=== PATIENT | male | born 1975 | race Caucasian/White ===

== ENCOUNTER 2020-12-13 15:23 | Inpatient (IN) | payer MEDICAID, SELFPAY ==
[2020-12-13] VITALS (71 sets, daily range): BP systolic 78–143; BP diastolic 20–83; PULSE 59–103; RESP 5–20; TEMP 32–36.8; O2SAT 80–100
--- NOTE | 2020-12-13 15:15 | RT.EKG_ITS ---
APPROVED REPORT Exam: Resting ECG Patient Location: E HR:85 bpm ECG Measurements Heart Rate 85 AXIS MA 159 P 65 QRSd 126 QRS 31 QT 395 T 69 QTc 471 Conclusion Sinus rhythm...normal P axis, V-rate 60- 99 Nonspecific intraventricular conduction delay...QRSd >115mS, not LBBB/RBBB Physician: No STEMI, no previous.
--- NOTE | 2020-12-13 15:30 | DI.CT_ITS ---
EXAM: CT CHEST WO CLINICAL HISTORY: sob, hypoxic, altered. TECHNIQUE: Multi planar reconstructions were performed. CONTRAST MATERIAL: Omnipaque 350; 75 cc COMPARISON: No exams were available for comparison FINDINGS: CHEST: Images are degraded by motion artifact LUNGS: In the left lung there is a noncalcified slightly stellate nodular infiltrate in the left uppe r lobe measuring 9 x 8 millimeters. slightly down lower down in the left upper lobe there is an 11 by 7 millimeter nodular infiltrate also noted, also noncalcified and requiring follow-up. In the left lower lobe anterior basal segment there is some mild subpleural infiltrate measuring approximately 7 x 6 millimeters. No pleural effusion. In the opposite-right lung there is ground-glass infiltrate laterally in the perifissural region betw een the upper and middle lobes.. Also requires follow-up. No pleural effusions on either side. No significant focal findings in the trachea and mainstem bronchi. There is no bronchiectasis. MEDIASTINUM: There is no hilar nor mediastinal adenopathy. Visualized thyroid unremarkable. CARDIAC: Heart size is normal. There is no pericardial effusion.Caliber of the thoracic aorta is wit hin normal limits. VISUALIZED UPPER ABDOMEN:There are no significant adrenal masses. OSSEOUS: No significant osseous lesions.. IMPRESSION: 1. There are bilateral pulmonary findings as described above which require follow-up CT scan in 3-6 m onths. 2. There are no pleural effusions. No obvious intrathoracic adenopathy evident on this noninfused charlotte dy. 3. No osseous lesions evident. RADIATION DOSE DELIVERED: 681.55mGy.cm Total DLP DATA REPOSITORY: All CT scans at this facility are submitted to the National Radiology Data Registry (NRDR) Dose Index Registry (DIR) with the [employer] (ACR). RADIATION OPTIMIZATION: All CT scans at this facility use at least one of these dose optimization te chniques: automated exposure control; mA and/or kV adjustment per patient size (includes targeted exa ms where dose is matched to clinical indication); or iterative reconstruction.
--- NOTE | 2020-12-13 15:30 | DI.CT_ITS ---
EXAM: CT HEAD WO CLINICAL HISTORY: recent falls, altered, seizures?. TECHNIQUE: Imaging Protocol: Axial computed tomography images with coronal and sagittal reformatted images were created and reviewed COMPARISON: No exams were available for comparison. Present images are significantly degraded by mo tion artifact. FINDINGS: There are no obvious skull fractures nor fluid in the visualized paranasal sinuses. There is an area of significant abnormal hypodensity in the inferior aspect of the right cerebellar h emisphere consistent with nonhemorrhagic infarct.. This measures approximately 3 x 2.8 cm. There is n o associated hemorrhage, intra or extra-axial. There is subtle white matter hypodensity in the superimposed tentorial region consistent with chronic small vessel disease. Left orbital globe is small and calcified. IMPRESSION: Abnormal hypodensity in the inferior right cerebellar hemisphere consistent with nonhemorrhagic infar ct. This is the territory of the right posterior inferior cerebral artery. Recommend follow-up MRI/MRA and possible also CT angiography. Images 1st interpreted by [facility] RADIATION DOSE DELIVERED: 950mGy.cm Total DLP DATA REPOSITORY: All CT scans at this facility are submitted to the National Radiology Data Registry (NRDR) Dose Index Registry (DIR) with the [employer] (ACR). RADIATION OPTIMIZATION: All CT scans at this facility use at least one of these dose optimization te chniques: automated exposure control; mA and/or kV adjustment per patient size (includes targeted exa ms where dose is matched to clinical indication); or iterative reconstruction.
--- NOTE | 2020-12-13 16:01 | RESPIRATORY ---
12/13 Pt arrived via [facility] obtunded on 3 LPM NC SPO2 86%. Pt arousable when spoken to . Pt notably desats to 83% on 6 LPM NC when asleep. Pt notes that he has been told he has JOSE. Pt transitioned to [facility] System 55 LPM, 40% FIO2 maintaining SpO2 95%.
[2020-12-13] MEDS: Normal Saline 500 ML IV (16:10)
--- NOTE | 2020-12-13 16:12 | ED.GENADUL_ITS ---
Discharge Plan Discharge Details Chief Complaint: AMS/LOC Admit Date/Time: 12/13/20 21:04 Admit Provider: Sergio Salamanca Attending Provider: Sergio Salamanca Primary Care Provider: Unknown,Unknown ED Provider: Albaro Maldonado Medical Decision Making 45-year-old male with a past medical history of methadone use, hepatitis C, COPD, who presents today via EMS for altered mental status. Per EMS the patient was found at home unresponsive by his caregiver. When EMS arrived his oxygenation was 85%. He does not normally use oxygen. The patient was arousable but kept drifting off back to sleep. There were no pinpoint pupils. Patient does have a history of an increase in his methadone recently, but denies any current new drug use. He has a distant history of past drug use. Otherwise the patient denies any new medications or illicit substances. 2 peripheral IV attempts were made, unsuccessful, and IO was then placed in the field which notably awoke the patient. He was ANO x3 after that per EMS. However in route the patient kept drifting off, but this would only last a few seconds. He also had one episode where EMS stated that he had decorticate posturing for about 20 seconds while he also seemed to pass out. Currently the patient has no complaints, he does not recall being down on the floor. He denies any pain except for where the interosseous needle is not in his left tib. No other complaints at this time. Patient has no other historical additions. 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 No focal neurologic deficits. No signs of trauma. Patient responds all questions and stimuli. The is ANO x3. However he does seem to drift back to sleep every few minutes but is immediately arousable. No indication for intubation at this time, however I am concerned for notable lung pathology potential aspiration, as he is currently needing 55 L/min on 40% FiO2 on high flow nasal cannula. This is not normal for him. Also concern for stroke, brain bleed, or metabolic etiology. I suspect the entire situation is compounded by his chronic methadone use and recent increase. Illicit drugs can also be a component. We will continue to monitor closely, evaluate for concerning etiologies and reassess. 9 PM Patient's laboratory work-up returned, no white count, pH was low at 7.28, PCO2 was elevated at 75, this does appear to be acute with a chronic component. Electrolytes are unremarkable, renal function stable. Troponin normal, EKG unchanged, thyroid function normal. Urine drug screen is positive for methadone and cocaine. COVID-19 testing is negative, alcohol negative, salicylates and acetaminophen negative. Patient was started on BiPAP with his elevated PCO2. He tolerated this well. CT of the chest was negative for any significant abnormality. Patient still does need supplemental oxygen to maintain the respiratory status however shows no signs of respiratory distress. Patient's mental status notably improved during his. Here, CT scan showed evidence of potential stroke, discussed the case with [facility] neurology team, and Dr. Angel personally reviewed the CT with his neuroradiologist, they feel that these findings concerning for stroke is more consistent with artifact rather than actual stroke. Patient has had some episodes of falling down at home, and I was unable to ambulate him here. Otherwise he shows no signs of focal neurologic deficits. [facility] does recommend MRI, echo and further evaluation. No beds are available at [facility] or at [facility] currently. Patient remained here in the ED for prolonged observation. And remains easily arousable, is having no more signs of significant altered mental status. Of note we did find a bottle full of 800 mg of gabapentin, which was filled yesterday with a quantity of 90 however there only about 40 pills left. This was found at the very end of the patient's stay on his first and third, and was discussed with Dr. Salamanca. I do suspect that the patient did take a bunch of gabapentin sometime over the last 24 to 36 hours, but is unwilling to admitted at this time. Patient does require admission for further work-up and management. Discussed the case with Dr. Salamanca. I have extensively reviewed the treatment plan with the patient. I have addressed all patient concerns at this time. I have also discussed the plan with the admitting physician and they agree with the current assessment and plan and have agreed to assume responsibility for the patient. All parties demonstrate verbal understanding and agreement with our assessment and plan at this time. The documentation in this chart was dictated using [employer] dictation software. Please excuse any dictation errors. FINDINGS: Brain: There is a 2.8 x 2.8 cm focus of hypodensity in the inferior aspect of the right cerebellar hemisphere. The cortex is predominantly involved. There is no secondary mass effect. No intra or extra-axial bleed. Cerebral ventricles: No hydrocephalus. Basal cisterns are patent. Bones/joints: No significant bony abnormality. No fracture. Paranasal sinuses: There is a small retention cyst along the anterior wall of the right maxillary sinus. Mastoid air cells: Mastoid air cells are clear. 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 Vasculature: There is enlargement and increased density to the distal aspect of the right vertebral artery best seen at the level of the clifford. Soft tissues: Unremarkable. Other findings: The images were mildly degraded by motion. IMPRESSION: 1. 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 THIS REPORT CONTAINS FINDINGS THAT MAY BE CRITICAL TO PATIENT CARE. The findings were verbally communicated via telephone conference with Lucy Vasquez NP At 5:16 PM EDT on 12/13/2020. The findings were acknowledged and understood. Thank you for allowing us to participate in the care of your patient. Dictated and Authenticated by: Gurdeep Solano MD 12/13/2020 5:17 PM Eastern Time ([place] & [place]) FINDINGS: Lungs: Images are degraded by motion. Subsolid nodule measuring approximately 1.1 cm in mid lung best seen axial series 4, image 262. Subsolid nodule measuring approximately 9 mm left upper lung best seen axial series 4, image 203. Patchy areas ground-glass attenuation without consolidation. Pleural spaces: Unremarkable. No pneumothorax. No pleural effusion. Heart: Unremarkable. No cardiomegaly. No pericardial effusion. Aorta: Unremarkable. No aortic aneurysm. Lymph nodes: Unremarkable. No enlarged lymph nodes. 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 Soft tissues: Unremarkable. IMPRESSION: 1. 2 areas of sub solid nodularity in left upper lung. Recommend CT Chest at 3-6 months. Subsequent management based on the most suspicious nodule(s). (Reference: Aroldo) HPI General Date/Time Provider Initiated Documentation: 12/13/20 15:30 . HPI Narrative: 45-year-old male with a past medical history of methadone use, h epatitis C, COPD, who presents today via EMS for altered mental status. Per EMS the patient was found at home unresponsive by his caregiver. When EMS arrived his oxygenation was 85%. He does not normally use oxygen. The patient was arousable but kept drifting off back to sleep. There were no pinpoint pupils. Patient does have a history of an increase in his methadone recently, but denies any current new drug use. He has a distant history of past drug use. Otherwise the patient denies any new medications or illicit substances. 2 peripheral IV attempts were made, unsuccessful, and IO was then placed in the field which notably awoke the patient. He was ANO x3 after that per EMS. However in route the patient kept drifting off, but this would only last a few seconds. He also had one episode where EMS stated that he had decorticate posturing for about 20 seconds while he also seemed to pass out. Currently the patient has no complaints, he does not recall being down on the floor. He denies any pain except for where the interosseous needle is not in his left tib. No other complaints at this time. Patient has no other historical additions. Related Da ta Home Medications Medication Instructions Recorded Confirmed gabapentin 800 mg PO TID 12/13/20 12/13/20 methadone 40 mg PO DAILY 12/13/20 12/13/20 Allergies Allergy/AdvReac Type Severity Reaction Status Date / Time No Known Drug Allergies Allergy Unverified 12/13/20 16:34 General Stated Complaint: AMS/LOC SILVA: 1 Review of Systems All systems reviewed & are unremarkable except as noted in HPI and below PFSH Social History Smoking/Tobacco Use Status: Former Tobacco Use Smoking risk assessment performed?: Yes Alcohol Intake: former Drug use: Occasionally Substance use type: former substance user, marijuana and heroin Details: States last Heroin use was 2 months ago. States he does not want any Narcan. Do you feel safe at home: Yes Do you feel safe in your relationship?: Yes Exam Narrative Exam Narrative: 1.Const: Well-nourished, Well-developed, appearing stated age 2.Eyes: Left eye demonstrates chronic blindness with a unreactive pupil and chronic scarring, no conjunctival injection, and symmetrical lids. Right eye is reactive, not pinpoint. 3.ENT: Atraumatic external nose and ears. Moist MM. Neck: Symmetric, trachea midline, No thyromegaly. There is no evidence of raccoon eyes, noel sign, CSF rhinorrhea, mastoid tenderness, cranial crepitus, hemotympanum, exophthalmos, or hyphema. Patient demonstrates intact dentition with no signs of tooth avulsion or fracture, no signs of jaw deformity, no evidence of a LeFort's fracture, with an intact palate, nose and orbital region. There is no evidence of a nasal septal hematoma. No proptosis. Jaw closes symmetrically. Airway is clear. 4.CVS: +S1/S2, No murmurs or gallops. Peripheral pulses 2+ and equal in all extremities. Brisk capillary refill in all extremities. 5.RESP: Mildly labored respiratory effort, slightly diminished breath sounds, no. Wheezes or rhonchi. 6.GI: Soft, Nontender/Nondistended, No hepatosplenomegaly. No guarding or rebound. 7.MSK: Normocephalic/Atraumatic, Extremities w/o deformity or ttp No cyanosis or clubbing, Normal movement of all extremities, there is an IO needle in the left tibia 8.Skin: Warm, Dry. No rashes or lesions. 9.Neuro: credit specialist II-XII grossly intact. Sensation grossly intact, no focal neurologic deficits. 10.Psych: (AAO) x3. Appropriate mood and affect, patient is easily arousable, responds all commands and questions. Intermittently he will seem to drift off to sleep but is immediately again arousable with any slight stimulation. Course Vital Signs Vital signs: Vital Signs Temperature 36.7 C 12/13/20 15:25 Pulse 86 12/13/20 15:25 Respiratory Rate 14 12/13/20 15:25 Blood Pressure 136/79 12/13/20 15:25 Pulse Oximetry 90 L 12/13/20 15:25 Temperature 36.7 C 12/13/20 15:25 Pulse 86 12/13/20 15:25 Respiratory Rate 14 12/13/20 15:25 Respiratory Effort Non-Labored 12/13/20 15:40 Blood Pressure 136/79 12/13/20 15:25 Pulse Oximetry 90 L 12/13/20 15:25 Oxygen Delivery Method Nasal Cannula 12/13/20 15:25 Oxygen Flow Rate 55 12/13/20 15:45 Fraction of Inspired Oxygen (FIO2) 40 12/13/20 15:45 Pain Level 8 12/13/20 15:25 Comment 12/13/20 15:25
[2020-12-13 16:32] LABS: Lactate 1.3 mmol/L (0.6-1.4)
[2020-12-13 16:34] LABS: Abs Immature Grans 0.03 10^3/uL (0.0-0.06); Absolute Basophil Count 0.03 10^3/uL (0.0-0.2); Absolute Eosinophil Count 0.08 10^3/uL (0.0-0.7); Absolute Lymphocyte Count 1.79 10^3/uL (1.2-3.4); Absolute Monocyte Count 0.78 10^3/uL (0.1-0.8); Absolute Neutrophil Count 4.59 10^3/uL (1.2-6.7); BE (Venous) 8 mmol/L (-2-3); Basophils % 0.4; Eosinophils % 1.1; HCO3 (Venous) 35 mmol/L (23-28); HCT 40.8 % (40.0-50.0); Immature Grans % 0.4; Lymphocytes % 24.5; MCHC 31.9 % (32.0-36.0); MCV 97.1 fL (80-95); MPV 10.7 fL (8.0-11.0); Monocytes % 10.7; Neutrophils % 62.9; Nucleated RBC 0 %; O2 Sat (Venous) 90 %; Platelet Count 224 10^3/uL (130-400); RDW 13.7 % (11.8-14.1); Source Nasal/Nares; TCO2 (Venous) 33 mmol/L (24-29); pH (Venous) 7.28 (7.31-7.41); pO2 (Venous) 59 mmHg
[2020-12-13 16:38] LABS: pCO2 (Venous) 75 mmHg (41-51)
[2020-12-13 16:41] LABS: Ammonia 28 umol/L (11-32)
[2020-12-13 16:48] LABS: Prothrombin Time 10.4 sec (9.3-11.0)
[2020-12-13 16:53] LABS: Salicylate 3.8 mg/dL (<2.8)
[2020-12-13 16:55] LABS: Acetaminophen < 2 ug/mL (10-30)
[2020-12-13 17:03] LABS: ALT 38 U/L (16-63); AST 36 U/L (15-37); Albumin 3.9 g/dL (3.4-5.0); Alkaline Phosphatase 68 U/L (46-116); BUN 21 mg/dL (7-18); Bilirubin, Total 0.6 mg/dL (0.2-1.0); CREATININE 0.9 mg/dL (0.70-1.30); Calcium 8.4 mg/dL (8.5-10.1); Chloride 100 mmol/L (98-107); Glucose 126 mg/dL (74-106); Potassium 4.5 mmol/L (3.5-5.1); Sodium 139 mmol/L (136-145); TSH (W/Ref FT4) 1.66 uIU/mL (0.36-3.74); Total Protein 7.5 g/dL (6.4-8.2); Troponin I < 0.05 ng/mL (<0.06)
--- NOTE | 2020-12-13 17:18 | DI.VRAD_ITS ---
PROCEDURE INFORMATION: Exam: CT Head Without Contrast Exam date and time: 12/13/2020 4:53 PM Age: 45 years old Clinical indication: Other: Recent falls, altered, seizures? TECHNIQUE: Imaging protocol: Computed tomography of the head without contrast. Total images: 1014 COMPARISON: No relevant prior studies available. FINDINGS: Brain: There is a 2.8 x 2.8 cm focus of hypodensity in the inferior aspect of the right cerebellar hemisphere. The cortex is predominantly involved. There is no secondary mass effect. No intra or extra-axial bleed. Cerebral ventricles: No hydrocephalus. Basal cisterns are patent. Bones/joints: No significant bony abnormality. No fracture. Paranasal sinuses: There is a small retention cyst along the anterior wall of the right maxillary sinus. Mastoid air cells: Mastoid air cells are clear. 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 Vasculature: There is enlargement and increased density to the distal aspect of the right vertebral artery best seen at the level of the clifford. Soft tissues: Unremarkable. Other findings: The images were mildly degraded by motion. IMPRESSION: 1. 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 2. THIS REPORT CONTAINS FINDINGS THAT MAY BE CRITICAL TO PATIENT CARE. The findings were verbally communicated via telephone conference with Lucy Vasquez NP At 5:16 PM EDT on 12/13/2020. The findings were acknowledged and understood. Dictated and Authenticated by: Gurdeep Solano MD. Ordering:DIOGENES Irvin MD
[2020-12-13 17:24] LABS: ETHANOL BLOOD < 3.0 mg/dL (<3)
--- NOTE | 2020-12-13 17:25 | DI.VRAD_ITS ---
PROCEDURE INFORMATION: Exam: CT Chest Without Contrast; Diagnostic Exam date and time: 12/13/2020 4:57 PM Age: 45 years old Clinical indication: Other: SOB, hypoxic, altered TECHNIQUE: Imaging protocol: Diagnostic computed tomography of the chest without contrast. 3D rendering (Not supervised by radiologist): MIP and/or 3D reconstructed images were created by the technologist. COMPARISON: No relevant prior studies available. FINDINGS: Lungs: Images are degraded by motion. Subsolid nodule measuring approximately 1.1 cm in mid lung best seen axial series 4, image 262. Subsolid nodule measuring approximately 9 mm left upper lung best seen axial series 4, image 203. Patchy areas ground-glass attenuation without consolidation. Pleural spaces: Unremarkable. No pneumothorax. No pleural effusion. Heart: Unremarkable. No cardiomegaly. No pericardial effusion. Aorta: Unremarkable. No aortic aneurysm. Lymph nodes: Unremarkable. No enlarged lymph nodes. 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 Soft tissues: Unremarkable. IMPRESSION: 1. 2 areas of sub solid nodularity in left upper lung. Recommend CT Chest at 3-6 months. Subsequent management based on the most suspicious nodule(s). (Reference: Aroldo) References: Aroldo H, et al. Guidelines for Management of Incidental Pulmonary Nodules Detected on CT Images: From the Fleischner Society 2017. Radiology. 2017;284(1):228-243. Dictated and Authenticated by: Jeanne Prieto MD. Ordering:DIOGENES Irvin MD
--- NOTE | 2020-12-13 17:45 | DI.CT_ITS ---
EXAM: CT BRAIN NECK CTA CLINICAL HISTORY: cerebellar stroke. TECHNIQUE: Imaging Protocol: Axial CT angiography was performed with multi-slice acquisition and mu lti-planar and/or 3D reconstructions. CONTRAST MATERIAL: Intravenous: Omnipaque 350 Contrast volume:structured data in ml COMPARISON: CT CT HEAD WO from 12/13/2020 FINDINGS: Lowermost images reveal what appears to be a nodule in the left lung upper lobe, partially included i n the field of view CTA Neck W: Aortic arch anatomy: Conventional. Anterior circulation: There is no significant stenosis at the origin the great vessels off the aortic arch. The common car otid arteries ascend with normal luminal diameters. There is no evidence of significant plaque/narro wing at the carotid bulbs and proximal internal carotid arteries on either side. Both internal carot id arteries exhibit normal diameters in the neck and are demonstrated to be patent in the skull base- carotid canals. Posterior circulation: Both vertebral arteries originate in conventional fashion off of the subclavian arteries. There is n o significant stenosis of the subclavian arteries proximal to the vertebral artery takeoff points.. The left vertebral artery is dominant. Some multilevel narrowing of the right vertebral artery is noted without inclusion in the foramen tra nsverse area. At the skull base the basilar artery is formed predominately by the left vertebral art kirstin. The right vertebral artery is twig like at this level. CTA Brain W: Anterior circulation: Both internal carotid arteries are patent the skull base carotid canals and within the cavernous sinu ses. The supraclinoid aspect these vessels are intact. Both middle cerebral arteries are patent no evidence of intraluminal thrombus nor aneurysms. Both A1 segments are patent as are the anterior cerebral arteries. There is no evidence of obvious a neurysm at the level of the anterior communicating artery. Posterior circulation: The basilar artery is a thin vessel which ascends in the midline. Distally it gives off the superior cerebellar arteries. It appears to terminate at this level. Both posterior cerebral arteries are s upplied by posterior communicating arteries on both sides of the [id number]. CT BRAIN: There is no evidence of intracranial hemorrhage, mass effect, or shift of midline structure s. No extra-axial fluid collections. Ventricles are not enlarged or shifted. There is no blood wit hin the ventricular system nor within the basal cisterns. The previously described hypodense area in the inferior aspect of the right cerebellar hemisphere is not evident on the present study. IMPRESSION: 1. No evidence of significant atherosclerotic narrowing of the carotid arteries in the neck. The lef t vertebral artery is dominant. 2. No evidence of intraluminal thrombus within the intracranial arteries. 3. The basilar artery is a thin vessel which appears developmental as it terminates as bilateral lara perior cerebellar arteries. Both posterior cerebral arteries are supplied by posterior communicating arteries on both sides the [id number]. No aneurysms evident. RADIATION DOSE DELIVERED: 1,523.81mGy.cm Total DLP DATA REPOSITORY: All CT scans at this facility are submitted to the National Radiology Data Registry (NRDR) Dose Index Registry (DIR) with the [employer] (ACR). RADIATION OPTIMIZATION: All CT scans at this facility use at least one of these dose optimization te chniques: automated exposure control; mA and/or kV adjustment per patient size (includes targeted exa ms where dose is matched to clinical indication); or iterative reconstruction.
[2020-12-13] MEDS: Omnipaque 350 MG/ML 100 ML BTL IJ (18:26)
[2020-12-13] MEDS: Normal Saline - Diluent 50 ML VIAL IV (18:28)
[2020-12-13] MEDS: Lidocaine 2% Jelly 6 ML SYR (18:30)
[2020-12-13 19:21] LABS: Bilirubin Negative (Negative); Blood Negative (Negative); Clarity Clear (Clear); Glucose Negative (Negative); Ketones Trace mg/dL (Negative); Leukocyte Esterase Negative (Negative); Nitrite Negative (Negative); Specific Gravity >= 1.030 (1.005-1.025); Urobilinogen 0.2 EU/dL (Up TO 0.2); pH 5.5 (5-8)
--- NOTE | 2020-12-13 19:24 | DI.VRAD_ITS ---
PROCEDURE INFORMATION: Exam: CT Angiography Head With Contrast Exam date and time: 12/13/2020 5:47 PM Age: 45 years old Clinical indication: Other: Cerebellar stroke TECHNIQUE: Imaging protocol: Computed tomography angiography of the head with intravenous contrast. 3D rendering (Not supervised by radiologist): MIP and/or 3D reconstructed images were created by the technologist. Contrast material: OMNIPAQUE 350; Contrast volume: 85 ml; Contrast route: INTRAVENOUS (IV); COMPARISON: CT HEAD WO 12/13/2020 4:53 PM FINDINGS: ANTERIOR CIRCULATION: Right internal carotid artery: Unremarkable. Intracranial segment is patent with no significant stenosis. No aneurysm. Right middle cerebral artery: Unremarkable. No occlusion or significant stenosis. No aneurysm. Right anterior cerebral artery: Unremarkable. No occlusion or significant stenosis. No aneurysm. Left internal carotid artery: Unremarkable. Intracranial segment is patent with no significant stenosis. No aneurysm. Left middle cerebral artery: Unremarkable. No occlusion or significant stenosis. No aneurysm. Left anterior cerebral artery: Unremarkable. No occlusion or significant stenosis. No aneurysm. POSTERIOR CIRCULATION: Right vertebral artery: Small focal stenosis just proximal to the basilar artery.. Left vertebral artery: Unremarkable. No occlusion or significant stenosis. No aneurysm. Basilar artery: Unremarkable. No occlusion or significant stenosis. No aneurysm. Right posterior cerebral artery: Unremarkable. No occlusion or significant stenosis. No aneurysm. Left posterior cerebral artery: Unremarkable. No occlusion or significant stenosis. No aneurysm. There is curvilinear calcification associated with a vessel along the right side the clifford and medulla which corresponds with the hyperdense vessel seen on the earlier CT and may correspond with a causative thromboembolus. Brain: Small region of cortical hypodensity involving the inferior right cerebellar hemisphere. Cerebral ventricles: No ventriculomegaly. Orbital cavity: Patient has a chronic left of the phtisis bulbi. Bones/joints: Unremarkable. No acute fracture. Soft tissues: Unremarkable. IMPRESSION: No significant large vessel stenosis or occlusion. Small stenosis distal right vertebral artery. Possible right-sided small vessel thromboembolus at the level of the mid to lower brainstem which could explain the earlier CT findings. PROCEDURE INFORMATION: Exam: CT Angiography Neck With Contrast Exam date and time: 12/13/2020 5:47 PM Age: 45 years old Clinical indication: Other: Cerebellar stroke TECHNIQUE: Imaging protocol: Computed tomography angiography of the neck with intravenous contrast. 3D rendering (Not supervised by radiologist): MIP and/or 3D reconstructed images were created by the technologist. Radiation optimization: All CT scans at this facility use at least one of these dose optimization techniques: automated exposure control; mA and/or kV adjustment per patient size (includes targeted exams where dose is matched to clinical indication); or iterative reconstruction. Contrast material: OMNIPAQUE 350; Contrast volume: 85 ml; Contrast route: INTRAVENOUS (IV); COMPARISON: CT HEAD WO 12/13/2020 4:53 PM FINDINGS: Right common carotid artery: No stenosis. No dissection or occlusion. Right internal carotid artery: No stenosis of the extracranial segment. No dissection or occlusion. Right external carotid artery: No occlusion or stenosis of the origin. Right vertebral artery: No stenosis. No dissection or occlusion. Left common carotid artery: No stenosis. No dissection or occlusion. Left internal carotid artery: No stenosis of the extracranial segment. No dissection or occlusion. Left external carotid artery: No occlusion or stenosis of the origin. Left vertebral artery: No stenosis. No dissection or occlusion. Subclavian arteries: There is a large coarse calcification associated with mild to moderate narrowing the right subclavian artery at the thoracic inlet. Bones/joints: Mild degenerative disc disease throughout the cervical spine. Soft tissues: Normal. No significant soft tissue swelling. IMPRESSION: Right subclavian stenosis. No carotid stenosis or occlusion. REFERENCES: NASCET CRITERIA. The degree of internal carotid artery stenosis is based on NASCET criteria. Normal is no stenosis. Mild is less than 50% stenosis. Moderate is 50-69% stenosis. Severe is 70% to 99% stenosis. Total occlusion is no detectable patent lumen. There Dictated and Authenticated by: Gurdeep Solano MD. Ordering:DIOGENES Irvin MD
[2020-12-13 19:35] LABS: BE (Venous) 7 mmol/L (-2-3); HCO3 (Venous) 34 mmol/L (23-28); O2 Sat (Venous) 99 %; TCO2 (Venous) 31 mmol/L (24-29); pO2 (Venous) 122 mmHg
[2020-12-13 19:39] LABS: pCO2 (Venous) 69 mmHg (41-51)
[2020-12-13 19:59] LABS: Bacteria Negative HPF (Negative); C & S Indicated? No; Casts Negative LPF (Negative); Crystals Negative HPF (Negative); Epithelial Cells Negative HPF (Negative); Mucus Moderate (Negative); Other Cells Negative (Negative)
[2020-12-13 20:02] LABS: *AMPHETAMINES SCREEN URINE Negative (Negative); *BARBITURATES SCREEN URINE Negative (Negative); *BENZODIAZEPINES SCREEN URINE Negative (Negative); Cannabinoids THC Negative (Negative); Cocaine Screen,Urine POSITIVE (Negative); METHADONE URINE SCREEN POSITIVE (Negative); OPIATES URINE SCREEN Negative (Negative)
[2020-12-13 20:09] LABS: Tricyclic Antidepressants Negative (Negative)
[2020-12-13 20:26] LABS: COVID-19 PCR Negative (Negative)
--- NOTE | 2020-12-13 22:39 | W.PM.HP.N ---
Date of service: 12/13/20 Time of Service: 22:39 Assessment and Plan Assessment and plan (1) Acute respiratory failure with hypoxia and hypercarbia: Start date: 12/13/20 Status: Acute Assessment and plan: This is a 45-year-old gentleman with a long history of substance abuse and on methadone but possibly abusing his gabapentin recently using cocaine. He was admitted to the ED for evaluation of altered mental status and was found to have mostly acute hypoxemia probably on chronic hypoxemia and hypercarbia with depressed respiratory status most likely secondary to his drugs and his use. He also is a tobacco user with COPD with probable untreated sleep apnea. He is overweight and there were some mention of history of positive pressure devices for treatment patient not presently on any respiratory treatment. He awakened with oxygenation and increase O2 with high flow O2 giving slight PE at the time of admission and patient not tolerating CPAP or BiPAP though he would agree to use of BiPAP overnight if tolerated. He is a full code this will be respected. He appears stable at this time and is able to protect his airway and in fact is up in his bed eating a snack. He does have slight tachypnea with any exertion. He also has coarse tremor and shaking when attempting to move in bed initially but this is improved as he has come up to [facility]. Continue to observe using BiPAP if needed during the night and leads oxygen supplementation to maintain pulse ox him above 90%. (2) Decompensated COPD with exacerbation (chronic obstructive pulmonary disease): Start date: 12/13/20 Status: Acute Assessment and plan: Patient appears to have exacerbation of respiratory status and will be treated as exacerbation of COPD with IV Solu-Medrol, IV Rocephin and doxycycline with a question of infiltrates on CT though these appear more nodular and will require CT follow-up. Patient will be treated with bronchodilators as needed. Acutely follow-up imaging if worsening. (3) Cerebellar cerebrovascular accident (CVA) without late effect: Start date: 12/13/20 Status: Acute Assessment and plan: Patient appears to have a right cerebellar infarction without hemorrhage by CT and CTA though, neurology thought this may have been artifact. MRI of the brain in the morning. Continue frequent vital signs with neuro checks. (4) Tobacco abuse: Status: Chronic Assessment and plan: Patient is a chronic smoker and respiratory meds as above with nicotine patch applied. Long-term patient should stop smoking. This (5) Polysubstance abuse: Status: Chronic Assessment and plan: Patient may have been missed taking his gabapentin which would enhance the effect of methadone which is given to him daily at [facility]. Patient will be monitored for withdrawal while hospitalized and his methadone dosing will be adjusted if sedation continues in the morning with patient not be given his methadone dose until cleared by apart as to dosing accuracy. History of Present Illness History of Present Illness Chief Complaint: Unresponsiveness at home. Narrative: This is a 45-year-old male patient who lives in a home with caretakers but has his own apartment. He was found unresponsive by his cableway operator and EMS was called and patient transported to the ED for evaluation. He was found to be arousable with painful stimuli but would become alert and then become more somnolent without stimulation. He was hypoxic and usually does wear oxygen at home. He also was found to be hypercarbic with probable respiratory failure acutely with chronic methadone treatment and probable overdosing of gabapentin with a new bottle found to be missing more pills than if taken correctly. Patient denies overtaking gabapentin as he claims he has medicines at home. He also had recent use of cocaine and there were questions of a right cerebellar infarction with CTA and CT matching the defect. Teleneurology was consulted and thought that this may be artifact but recommended MRI with follow-up. He was not a candidate for TPA. 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 He is very tremulous and unsteady with trying to sit up in bed. He offers no further history and is a vague historian. He denies any shortness of breath though he does smoke daily and appears to have COPD clinically and by history. As stated he does have oxygen at home and is not on CPAP treatment for sleep apnea though this is a question as to whether he was prescribed positive pressure treatment in the past. His history is not complete on local records. The patient was stable and more arousable on high flow O2 with mild PEEP and not tolerating CPAP but possibly able to tolerate intermittent BiPAP after reviewing with patient. Respiratory therapy will be following patient as well. Review of Systems Narrative: 13 point review of systems otherwise unrevealing or overall stable with the patient chronically ill. He is obese with no recent change and does have chronic peripheral edema with no recent change. As stated the patient lives alone and is independent in his ADL activity. The patient states that he lives in a care home house. [facility] Medical History (Updated 12/14/20 @ 00:40 by Sergio Salamanca) COPD (chronic obstructive pulmonary disease) Moderate opioid dependence on maintenance therapy Polysubstance abuse Tobacco abuse Social History Smoking/Tobacco Use Status: Former Tobacco Use Smoking risk assessment performed?: Yes Alcohol Intake: former Drug use: Occasionally Substance use type: former substance user, marijuana and heroin Details: States last Heroin use was 2 months ago. States he does not want any Narcan. Do you feel safe at home: Yes Do you feel safe in your relationship?: Yes Meds Home Medications and Allergies Allergies Allergy/AdvReac Type Severity Reaction Status Date / Time No Known Drug Allergies Allergy Unverified 12/13/20 16:34 Home Medications Medication Instructions Recorded Confirmed Type gabapentin 800 mg PO TID 12/13/20 12/13/20 History methadone 40 mg PO DAILY 12/13/20 12/13/20 History Exam Narrative Exam Narrative: General: Patient appears older than stated age, balding with coarsened features of his face and variably responsive to verbal stimuli. He does awaken with loud speaking and follows commands. He does not appear to be in acute distress. He is alert and oriented at least to person and place. HEENT: Normocephalic with balding scalp as mentioned, unkempt braxton, coarsened features of face without edema, eyes with left eye wandering and looking downward into the left with an opaque pupil which is fixed and large, right eye has normal pupil with normal responsiveness and extraocular movement intact. Left eye at times does follow movement with the right. Oropharynx with dry mucosa poor dentition. Neck: Supple without JVD or auscultated bruits. Back: Stooped posture without CVA tenderness. Lungs: Bronchovesicular breath sound diffusely with poor aeration, increased expiratory phase with expiratory wheeze and diffuse rhonchi without localizing rales. Heart: Regular rate and rhythm with no appreciable murmur or gallop and distant heart sounds. Abdomen: Obese contour, soft with diffuse tenderness and guarding but no rebound. No palpable hepatosplenomegaly though exam is made difficult with patient's guarding. Large pannus. Genitalia/rectal: Exam deferred. Extremities: Chronic nonpitting edema over lower extremities bilaterally with loss of hair and shiny atrophic skin over both lower extremities with erythema but no hyperpigmentation or ulcers. Fair capillary refill. All joints have decreased range of motion but no acute swelling or effusion palpable. Skin: Warm, moist and hyperemic appearing with flushing diffusely. Neuro: Cranial nerves II through XII gross intact except for left eye which is secondary to blindness from opaque lens and amblyopia, diffuse shaking and coarse tremor with activities such as sitting up otherwise no resting tremor and no focal motor deficits noted. Cerebellar testing was not able to be performed the patient unsteady in bed. Psych: Flattened affect, depressed mood with patient obtunded from sedation. No abnormal thought processes interpreted as patient awake and more he appears to have at least intact remote memory with mostly intact recent memory. He is a poor historian. Results Imaging Imaging Studies: EXAM: CT HEAD WO CLINICAL HISTORY: recent falls, altered, seizures?. TECHNIQUE: Imaging Protocol: Axial computed tomography images with coronal and sagittal reformatted images were created and reviewed COMPARISON: No exams were available for comparison. Present images are significantly degraded by motion artifact. FINDINGS: There are no obvious skull fractures nor fluid in the visualized paranasal sinuses. There is an area of significant abnormal hypodensity in the inferior aspect of the right cerebellar hemisphere consistent with nonhemorrhagic infarct.. This measures approximately 3 x 2.8 cm. There is no associated hemorrhage, intra or extra-axial. There is subtle white matter hypodensity in the superimposed tentorial region consistent with chronic small vessel disease. Left orbital globe is small and calcified. IMPRESSION: Abnormal hypodensity in the inferior right cerebellar hemisphere consistent with nonhemorrhagic infarct. This is the territory of the right posterior inferior cerebral artery. Recommend follow-up MRI/MRA and possible also CT angiography. Dictated By: Meng Anderson M.D. 12/13/20 1801 Exam: CT Angiography Head With Contrast Exam date and time: 12/13/2020 5:47 PM Age: 45 years old Clinical indication: Other: Cerebellar stroke COMPARISON: CT HEAD WO 12/13/2020 4:53 PM FINDINGS: ANTERIOR CIRCULATION: Right internal carotid artery: Unremarkable. Intracranial segment is patent with no significant stenosis. No aneurysm. Right middle cerebral artery: Unremarkable. No occlusion or significant stenosis. No aneurysm. Right anterior cerebral artery: Unremarkable. No occlusion or significant stenosis. No aneurysm. Left internal carotid artery: Unremarkable. Intracranial segment is patent with no significant stenosis. No aneurysm. Left middle cerebral artery: Unremarkable. No occlusion or significant stenosis. No aneurysm. Left anterior cerebral artery: Unremarkable. No occlusion or significant stenosis. No aneurysm. POSTERIOR CIRCULATION: Right vertebral artery: Small focal stenosis just proximal to the basilar artery.. Left vertebral artery: Unremarkable. No occlusion or significant stenosis. No aneurysm. Basilar artery: Unremarkable. No occlusion or significant stenosis. No aneurysm. Right posterior cerebral artery: Unremarkable. No occlusion or significant stenosis. No aneurysm. Left posterior cerebral artery: Unremarkable. No occlusion or significant stenosis. No aneurysm. There is curvilinear calcification associated with a vessel along the right side the clifford and medulla which corresponds with the hyperdense vessel seen on the earlier CT and may correspond with a causative thromboembolus. Brain: Small region of cortical hypodensity involving the inferior right cerebellar hemisphere. Cerebral ventricles: No ventriculomegaly. Orbital cavity: Patient has a chronic left of the phtisis bulbi. Bones/joints: Unremarkable. No acute fracture. Soft tissues: Unremarkable. IMPRESSION: No significant large vessel stenosis or occlusion. Small stenosis distal right vertebral artery. Possible right-sided small vessel thromboembolus at the level of the mid to lower brainstem which could explain the earlier CT findings. PROCEDURE INFORMATION: Exam: CT Angiography Neck With Contrast Exam date and time: 12/13/2020 5:47 PM Age: 45 years old Clinical indication: Other: Cerebellar stroke COMPARISON: CT HEAD WO 12/13/2020 4:53 PM FINDINGS: Right common carotid artery: No stenosis. No dissection or occlusion. Right internal carotid artery: No stenosis of the extracranial segment. No dissection or occlusion. Right external carotid artery: No occlusion or stenosis of the origin. Right vertebral artery: No stenosis. No dissection or occlusion. Left common carotid artery: No stenosis. No dissection or occlusion. Left internal carotid artery: No stenosis of the extracranial segment. No dissection or occlusion. Left external carotid artery: No occlusion or stenosis of the origin. Left vertebral artery: No stenosis. No dissection or occlusion. Subclavian arteries: There is a large coarse calcification associated with mild to moderate narrowing the right subclavian artery at the thoracic inlet. Bones/joints: Mild degenerative disc disease throughout the cervical spine. Soft tissues: Normal. No significant soft tissue swelling. IMPRESSION: Right subclavian stenosis. No carotid stenosis or occlusion. Dictated and Authenticated by: Gurdeep Solano MD. EXAM: CT CHEST WO CLINICAL HISTORY: sob, hypoxic, altered. TECHNIQUE: Multi planar reconstructions were performed. CONTRAST MATERIAL: Omnipaque 350; 75 cc COMPARISON: No exams were available for comparison FINDINGS: CHEST: Images are degraded by motion artifact LUNGS: In the left lung there is a noncalcified slightly stellate nodular infiltrate in the left upper lobe measuring 9 x 8 millimeters. slightly down lower down in the left upper lobe there is an 11 by 7 millimeter nodular infiltrate also noted, also noncalcified and requiring follow-up. In the left lower lobe anterior basal segment there is some mild subpleural infiltrate measuring approximately 7 x 6 millimeters. No pleural effusion. In the opposite-right lung there is ground-glass infiltrate laterally in the perifissural region between the upper and middle lobes.. Also requires follow-up. No pleural effusions on either side. No significant focal findings in the trachea and mainstem bronchi. There is no bronchiectasis. MEDIASTINUM: There is no hilar nor mediastinal adenopathy. Visualized thyroid unremarkable. CARDIAC: Heart size is normal. There is no pericardial effusion.Caliber of the thoracic aorta is within normal limits. VISUALIZED UPPER ABDOMEN:There are no significant adrenal masses. OSSEOUS: No significant osseous lesions.. IMPRESSION: 1. There are bilateral pulmonary findings as described above which require follow-up CT scan in 3-6 months. 2. There are no pleural effusions. No obvious intrathoracic adenopathy evident on this noninfused study. 3. No osseous lesions evident. Dictated By: Meng Anderson M.D. 12/13/20 1739 Exam: CT Head Without Contrast Exam date and time: 12/13/2020 4:53 PM Age: 45 years old Clinical indication: Other: Recent falls, altered, seizures? COMPARISON: No relevant prior studies available. FINDINGS: Brain: There is a 2.8 x 2.8 cm focus of hypodensity in the inferior aspect of the right cerebellar hemisphere. The cortex is predominantly involved. There is no secondary mass effect. No intra or extra-axial bleed. Cerebral ventricles: No hydrocephalus. Basal cisterns are patent. Bones/joints: No significant bony abnormality. No fracture. Paranasal sinuses: There is a small retention cyst along the anterior wall of the right maxillary sinus. Mastoid air cells: Mastoid air cells are clear. 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 Vasculature: There is enlargement and increased density to the distal aspect of the right vertebral artery best seen at the level of the clifford. Soft tissues: Unremarkable. Other findings: The images were mildly degraded by motion. IMPRESSION: 1. 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 2. THIS REPORT CONTAINS FINDINGS THAT MAY BE CRITICAL TO PATIENT CARE. The findings were verbally communicated via telephone conference with Lucy Vasquez NP. Dictated and Authenticated by: Gurdeep Solano MD. Labs Result diagrams: 12/13/20 16:20 12/13/20 16:20 Labs: Laboratory Results - last 24 hr 12/13/20 12/13/20 12/13/20 16:20 16:20 16:20 WBC RBC Hgb Hct MCV MCH MCHC RDW Plt Count MPV Immature Gran % Neutrophils % Lymphocytes % Monocytes % Eosinophils % Basophils % Nucleated RBC % Absolute Neutrophils Absolute Lymphocytes Absolute Monocytes Absolute Eosinophils Absolute Basophils PT INR APTT VBG pH VBG pCO2 VBG pO2 VBG HCO3 VBG Total CO2 VBG O2 Saturation VBG Base Excess VBG Lactate Sodium 139 Potassium 4.5 Chloride 100 Carbon Dioxide 35.0 H Anion Gap 4.0 BUN 21 H Creatinine 0.9 Estimated GFR/1.73 m2 >= 60.00 Glucose 126 H Calcium 8.4 L Total Bilirubin 0.6 AST 36 ALT 38 Alkaline Phosphatase 68 Ammonia Troponin I < 0.05 Total Protein 7.5 Albumin 3.9 TSH 1.66 Urine Color Urine Clarity Urine pH Ur Specific [place] Urine Protein Urine Ketones Urine Blood Urine Nitrite Urine Bilirubin Urine Urobilinogen Ur Leukocyte Esterase Urine RBC Urine WBC Ur Epithelial Cells Urine Crystals Urine Bacteria Urine Casts Urine Mucus Urine Other Ur Culture Indicated? Urine Glucose Salicylates 3.8 Urine Opiates Screen Urine Methadone Screen Acetaminophen < 2 Ur Barbiturates Screen Ur Tricyclics Screen Ur Amphetamines Screen U Benzodiazepines Scrn Urine Cocaine Screen Ur THC Screen Ethyl Alcohol < 3.0 COVID-19 Source Nasal/nares SARS-CoV-2 (PCR) Negative 12/13/20 12/13/20 12/13/20 16:20 16:20 16:20 WBC 7.30 RBC 4.20 L Hgb 13.0 L Hct 40.8 MCV 97.1 H MCH 31.0 MCHC 31.9 L RDW 13.7 Plt Count 224 MPV 10.7 Immature Gran % 0.4 Neutrophils % 62.9 Lymphocytes % 24.5 Monocytes % 10.7 Eosinophils % 1.1 Basophils % 0.4 Nucleated RBC % 0 Absolute Neutrophils 4.59 Absolute Lymphocytes 1.79 Absolute Monocytes 0.78 Absolute Eosinophils 0.08 Absolute Basophils 0.03 PT INR APTT VBG pH VBG pCO2 VBG pO2 VBG HCO3 VBG Total CO2 VBG O2 Saturation VBG Base Excess VBG Lactate 1.3 Sodium Potassium Chloride Carbon Dioxide Anion Gap BUN Creatinine Estimated GFR/1.73 m2 Glucose Calcium Total Bilirubin AST ALT Alkaline Phosphatase Ammonia 28 Troponin I Total Protein Albumin TSH Urine Color Urine Clarity Urine pH Ur Specific [place] Urine Protein Urine Ketones Urine Blood Urine Nitrite Urine Bilirubin Urine Urobilinogen Ur Leukocyte Esterase Urine RBC Urine WBC Ur Epithelial Cells Urine Crystals Urine Bacteria Urine Casts Urine Mucus Urine Other Ur Culture Indicated? Urine Glucose Salicylates Urine Opiates Screen Urine Methadone Screen Acetaminophen Ur Barbiturates Screen Ur Tricyclics Screen Ur Amphetamines Screen U Benzodiazepines Scrn Urine Cocaine Screen Ur THC Screen Ethyl Alcohol COVID-19 Source SARS-CoV-2 (PCR) 12/13/20 12/13/20 12/13/20 16:20 16:20 18:45 WBC RBC Hgb Hct MCV MCH MCHC RDW Plt Count MPV Immature Gran % Neutrophils % Lymphocytes % Monocytes % Eosinophils % Basophils % Nucleated RBC % Absolute Neutrophils Absolute Lymphocytes Absolute Monocytes Absolute Eosinophils Absolute Basophils PT 10.4 INR 1.0 APTT 26.0 VBG pH 7.28 L VBG pCO2 75 H* VBG pO2 59 VBG HCO3 35 H VBG Total CO2 33 H VBG O2 Saturation 90 VBG Base Excess 8 H VBG Lactate Sodium Potassium Chloride Carbon Dioxide Anion Gap BUN Creatinine Estimated GFR/1.73 m2 Glucose Calcium Total Bilirubin AST ALT Alkaline Phosphatase Ammonia Troponin I Total Protein Albumin TSH Urine Color Urine Clarity Urine pH Ur Specific [place] Urine Protein Urine Ketones Urine Blood Urine Nitrite Urine Bilirubin Urine Urobilinogen Ur Leukocyte Esterase Urine RBC Urine WBC Ur Epithelial Cells Urine Crystals Urine Bacteria Urine Casts Urine Mucus Urine Other Ur Culture Indicated? Urine Glucose Salicylates Urine Opiates Screen Negative Urine Methadone Screen Positive A Acetaminophen Ur Barbiturates Screen Negative Ur Tricyclics Screen Negative Ur Amphetamines Screen Negative U Benzodiazepines Scrn Negative Urine Cocaine Screen Positive A Ur THC Screen Negative Ethyl Alcohol COVID-19 Source SARS-CoV-2 (PCR) 12/13/20 12/13/20 18:45 19:15 WBC RBC Hgb Hct MCV MCH MCHC RDW Plt Count MPV Immature Gran % Neutrophils % Lymphocytes % Monocytes % Eosinophils % Basophils % Nucleated RBC % Absolute Neutrophils Absolute Lymphocytes Absolute Monocytes Absolute Eosinophils Absolute Basophils PT INR APTT VBG pH 7.30 L VBG pCO2 69 H* VBG pO2 122 VBG HCO3 34 H VBG Total CO2 31 H VBG O2 Saturation 99 VBG Base Excess 7 H VBG Lactate Sodium Potassium Chloride Carbon Dioxide Anion Gap BUN Creatinine Estimated GFR/1.73 m2 Glucose Calcium Total Bilirubin AST ALT Alkaline Phosphatase Ammonia Troponin I Total Protein Albumin TSH Urine Color Yellow Urine Clarity Clear Urine pH 5.5 Ur Specific [place] >= 1.030 H Urine Protein 30 H Urine Ketones Trace H Urine Blood Negative Urine Nitrite Negative Urine Bilirubin Negative Urine Urobilinogen 0.2 Ur Leukocyte Esterase Negative Urine RBC 3-5 H Urine WBC 3-5 Ur Epithelial Cells Negative Urine Crystals Negative Urine Bacteria Negative Urine Casts Negative Urine Mucus Moderate Urine Other Negative Ur Culture Indicated? No Urine Glucose Negative Salicylates Urine Opiates Screen Urine Methadone Screen Acetaminophen Ur Barbiturates Screen Ur Tricyclics Screen Ur Amphetamines Screen U Benzodiazepines Scrn Urine Cocaine Screen Ur THC Screen Ethyl Alcohol COVID-19 Source SARS-CoV-2 (PCR) Last Vital Signs Temp 36.7 C 12/13/20 15:25 Pulse 63 12/13/20 22:01 Resp 8 L 12/13/20 22:01 BP 104/40 L 12/13/20 22:01 Pulse Ox 90 L 12/13/20 22:01 COVID-19 Screening Have you, or household traveled for leisure in last 14 days?: No Had IN PERSON contact w/suspected or confirmed C-19 person: No
[2020-12-14] VITALS (10 sets, daily range): BP systolic 102–121; BP diastolic 55–69; PULSE 61–98; RESP 16–20; TEMP 36.2–36.8; O2SAT 87–98
[2020-12-14] LABS: Magnesium 2.1 mg/dL (1.8-2.4)
[2020-12-14] MEDS: methylPREDNISolone SUCC 125 MG VIAL 80 MG IVP ×2 (00:04→07:48)
[2020-12-14] MEDS: DOXYCYCLINE 100 MG in Normal Saline 100 ML IVPB ×2 (01:03→13:26)
[2020-12-14] MEDS: Normal Saline 500 ML 30 ML IV (01:03)
[2020-12-14] MEDS: cefTRIAXone 1 GM/50 ML BAG IVPB (02:23)
[2020-12-14] MEDS: Albuterol 2.5 MG/3 ML INH SOLN VIAL UPD (03:17)
[2020-12-14 07:34] LABS: Abs Immature Grans 0.03 10^3/uL (0.0-0.06); Absolute Eosinophil Count 0.02 10^3/uL (0.0-0.7); Absolute Monocyte Count 0.08 10^3/uL (0.1-0.8); Absolute Neutrophil Count 4.34 10^3/uL (1.2-6.7); Eosinophils % 0.4; HCT 41.2 % (40.0-50.0); HGB 12.9 g/dL (13.5-17.5); Immature Grans % 0.6; Lymphocytes % 13.5; MCH 30.1 pg (27.0-33.0); MCHC 31.3 % (32.0-36.0); MPV 10.7 fL (8.0-11.0); Monocytes % 1.5; Nucleated RBC 0 %; Platelet Count 212 10^3/uL (130-400); RBC 4.29 10^6/uL (4.36-5.78); RDW 13.7 % (11.8-14.1); RDW-SD 48.4 fL; WBC 5.17 10^3/uL (4.4-10.8)
[2020-12-14 07:48] LABS: ALT 40 U/L (16-63); AST 34 U/L (15-37); Albumin 3.7 g/dL (3.4-5.0); Alkaline Phosphatase 68 U/L (46-116); Anion Gap 3.6 mmol/L (3-11); BUN 13 mg/dL (7-18); Bilirubin, Total 0.5 mg/dL (0.2-1.0); CO2 34.4 mmol/L (21.0-32.0); CREATININE 0.7 mg/dL (0.70-1.30); Calcium 8.4 mg/dL (8.5-10.1); Chloride 99 mmol/L (98-107); Glucose 156 mg/dL (74-106); Potassium 4.8 mmol/L (3.5-5.1); Sodium 137 mmol/L (136-145); Total Protein 7.5 g/dL (6.4-8.2)
[2020-12-14] MEDS: Normal Saline Flush 10 ML SYR IVP ×2 (07:49→11:19)
--- NOTE | 2020-12-14 08:00 | DI.MRI_ITS ---
EXAM: MR BRAIN WO CLINICAL HISTORY: Right cerebellar infarct TECHNIQUE: Multiplanar multisequence MRI of the brain was performed. No IV contrast COMPARISON: CT CT HEAD WO from 12/13/[address] HEAD WO from 12/13/2020 FINDINGS: CEREBRAL PARENCHYMA: No evidence of intracranial hemorrhage, mass effect nor shift of midline structu re. No extraaxial fluid collections. Ventricles are not enlarged nor shifted. There is no significant focal signal abnormality in the cerebellar hemispheres. There is no abnormal signal in the inferior right cerebellar hemisphere to correspond to the finding on the CT scan. The re is also no significant signal abnormality elsewhere in the cerebellar hemispheres nor within the p ons, midbrain, and thalami. There is minimal periventricular signal abnormality. A solitary 2 lópez meter nonspecific signal focus in the right periventricular white matter is noted. No other signific ant focal findings. No cerebellar tonsillar ectopia. PITUITARY GLAND: No mass nor parasellar abnormality. No obvious abnormality in the cavernous sinuses. FLOW VOIDS: The expected flow void are noted. No evidence of obvious aneurysm nor obvious vascular ma lformation. The basilar artery exhibits thin caliber but this is developmental and appears to be rela hanh to the fact that both posterior cerebral arteries are supplied by posterior communicating arterie s on both sides of the [id number]. PARANASAL SINUSES: The visualized paranasal sinuses appear unremarkable with the exception of a small retention cyst in the anterior wall of the right maxillary sinus. No associated fluid level.. ORBITS: Atrophied left orbital globe, as seen on recent CT. IMPRESSION: 1. No significant acute intracranial findings on this noninfused MRI scan of the brain. 2. No abnormal findings in the inferior right cerebellar hemisphere to correspond to what was seen o n CT scan. DATA REPOSITORY:
--- NOTE | 2020-12-14 08:57 | W.PM.PROGNOT ---
Date of Service Date of service: 12/14/20 Time of Service: 08:57 Assessment and Plan Assessment and plan (1) Acute respiratory failure with hypoxia and hypercarbia: Status: Acute Assessment and plan: resolved now and oxygenating well on room air. no respiratory distress. likely associated with polypharmacy/unintentional overdose/misuse of medication (2) Decompensated COPD with exacerbation (chronic obstructive pulmonary disease): Status: Acute Assessment and plan: Patient appears to have exacerbation of respiratory status and will be treated as exacerbation of COPD with IV Solu-Medrol, IV Rocephin and doxycycline with a question of infiltrates on CT though these appear more nodular and will require CT follow-up. Patient will be treated with bronchodilators as needed. (3) Cerebellar cerebrovascular accident (CVA) without late effect: Status: Acute Assessment and plan: Patient appears to have a right cerebellar infarction without hemorrhage by CT and CTA though, neurology thought this may have been artifact. MRI of the brain pending. Continue frequent vital signs with neuro checks. (4) Tobacco abuse: Status: Chronic Assessment and plan: Patient is a chronic smoker and respiratory meds as above with nicotine patch applied. Long-term patient should stop smoking. (5) Polysubstance abuse: Status: Chronic Assessment and plan: Patient may have been missed taking his gabapentin which would enhance the effect of methadone which is given to him daily at [facility]. Patient will be monitored for withdrawal while hospitalized and his methadone dosing will be adjusted if sedation continues in the morning with patient not be given his methadone dose until cleared by apart as to dosing accuracy. discussed with DR Rodriguez Subjective Subjective Interval history since last seen: nursing reporting tremors, left eye drooping, diaphoresis, and some leaning towards right side Exam Const General: cooperative, no acute distress and ill appearing chronically Nutritional Appearance: overweight Orientation: alert, awake and oriented x3 HENMT Head: normal to inspection, normocephalic and atraumatic Eyes Alignment and Position: position abnormal left (dysconjugate) Eyelids: eyelid abnormality left upper eyelid ptosis Resp Effort & Inspection: normal respiratory effort Cardio Rate: regular rate Rhythm: regular rhythm GI Percussion: normal to percussion Auscultation: normal bowel sounds Skin General skin exam: no rashes or lesions noted Neuro General: patient alert, patient awake and patient oriented x3 Extrem General: normal to inspection and full ROM Psych Speech and Movement: speech and movement normal Mood: congruent mood Affect: normal affect Attitude: cooperative Thought Process: normal Thought Content: normal Objective Last Vital Signs Temp 36.2 C L 12/14/20 07:39 Pulse 65 12/14/20 07:39 Resp 18 12/14/20 07:39 BP 102/60 12/14/20 07:39 Pulse Ox 96 12/14/20 07:39 Laboratory Results - last 24 hr 12/13/20 12/13/20 12/13/20 16:20 16:20 16:20 WBC RBC Hgb Hct MCV MCH MCHC RDW Plt Count MPV Immature Gran % Neutrophils % Lymphocytes % Monocytes % Eosinophils % Basophils % Nucleated RBC % Absolute Neutrophils Absolute Lymphocytes Absolute Monocytes Absolute Eosinophils Absolute Basophils PT INR APTT VBG pH VBG pCO2 VBG pO2 VBG HCO3 VBG Total CO2 VBG O2 Saturation VBG Base Excess VBG Lactate Sodium 139 Potassium 4.5 Chloride 100 Carbon Dioxide 35.0 H Anion Gap 4.0 BUN 21 H Creatinine 0.9 Estimated GFR/1.73 m2 >= 60.00 Glucose 126 H Calcium 8.4 L Magnesium Total Bilirubin 0.6 AST 36 ALT 38 Alkaline Phosphatase 68 Ammonia Troponin I < 0.05 Total Protein 7.5 Albumin 3.9 TSH 1.66 Urine Color Urine Clarity Urine pH Ur Specific [place] Urine Protein Urine Ketones Urine Blood Urine Nitrite Urine Bilirubin Urine Urobilinogen Ur Leukocyte Esterase Urine RBC Urine WBC Ur Epithelial Cells Urine Crystals Urine Bacteria Urine Casts Urine Mucus Urine Other Ur Culture Indicated? Urine Glucose Salicylates 3.8 Urine Opiates Screen Urine Methadone Screen Acetaminophen < 2 Ur Barbiturates Screen Ur Tricyclics Screen Ur Amphetamines Screen U Benzodiazepines Scrn Urine Cocaine Screen Ur THC Screen Ethyl Alcohol < 3.0 COVID-19 Source Nasal/nares SARS-CoV-2 (PCR) Negative 12/13/20 12/13/20 12/13/20 16:20 16:20 16:20 WBC 7.30 RBC 4.20 L Hgb 13.0 L Hct 40.8 MCV 97.1 H MCH 31.0 MCHC 31.9 L RDW 13.7 Plt Count 224 MPV 10.7 Immature Gran % 0.4 Neutrophils % 62.9 Lymphocytes % 24.5 Monocytes % 10.7 Eosinophils % 1.1 Basophils % 0.4 Nucleated RBC % 0 Absolute Neutrophils 4.59 Absolute Lymphocytes 1.79 Absolute Monocytes 0.78 Absolute Eosinophils 0.08 Absolute Basophils 0.03 PT INR APTT VBG pH VBG pCO2 VBG pO2 VBG HCO3 VBG Total CO2 VBG O2 Saturation VBG Base Excess VBG Lactate 1.3 Sodium Potassium Chloride Carbon Dioxide Anion Gap BUN Creatinine Estimated GFR/1.73 m2 Glucose Calcium Magnesium Total Bilirubin AST ALT Alkaline Phosphatase Ammonia 28 Troponin I Total Protein Albumin TSH Urine Color Urine Clarity Urine pH Ur Specific [place] Urine Protein Urine Ketones Urine Blood Urine Nitrite Urine Bilirubin Urine Urobilinogen Ur Leukocyte Esterase Urine RBC Urine WBC Ur Epithelial Cells Urine Crystals Urine Bacteria Urine Casts Urine Mucus Urine Other Ur Culture Indicated? Urine Glucose Salicylates Urine Opiates Screen Urine Methadone Screen Acetaminophen Ur Barbiturates Screen Ur Tricyclics Screen Ur Amphetamines Screen U Benzodiazepines Scrn Urine Cocaine Screen Ur THC Screen Ethyl Alcohol COVID-19 Source SARS-CoV-2 (PCR) 12/13/20 12/13/20 12/13/20 16:20 16:20 18:45 WBC RBC Hgb Hct MCV MCH MCHC RDW Plt Count MPV Immature Gran % Neutrophils % Lymphocytes % Monocytes % Eosinophils % Basophils % Nucleated RBC % Absolute Neutrophils Absolute Lymphocytes Absolute Monocytes Absolute Eosinophils Absolute Basophils PT 10.4 INR 1.0 APTT 26.0 VBG pH 7.28 L VBG pCO2 75 H* VBG pO2 59 VBG HCO3 35 H VBG Total CO2 33 H VBG O2 Saturation 90 VBG Base Excess 8 H VBG Lactate Sodium Potassium Chloride Carbon Dioxide Anion Gap BUN Creatinine Estimated GFR/1.73 m2 Glucose Calcium Magnesium Total Bilirubin AST ALT Alkaline Phosphatase Ammonia Troponin I Total Protein Albumin TSH Urine Color Urine Clarity Urine pH Ur Specific [place] Urine Protein Urine Ketones Urine Blood Urine Nitrite Urine Bilirubin Urine Urobilinogen Ur Leukocyte Esterase Urine RBC Urine WBC Ur Epithelial Cells Urine Crystals Urine Bacteria Urine Casts Urine Mucus Urine Other Ur Culture Indicated? Urine Glucose Salicylates Urine Opiates Screen Negative Urine Methadone Screen Positive A Acetaminophen Ur Barbiturates Screen Negative Ur Tricyclics Screen Negative Ur Amphetamines Screen Negative U Benzodiazepines Scrn Negative Urine Cocaine Screen Positive A Ur THC Screen Negative Ethyl Alcohol COVID-19 Source SARS-CoV-2 (PCR) 12/13/20 12/13/20 12/13/20 18:45 19:15 19:15 WBC RBC Hgb Hct MCV MCH MCHC RDW Plt Count MPV Immature Gran % Neutrophils % Lymphocytes % Monocytes % Eosinophils % Basophils % Nucleated RBC % Absolute Neutrophils Absolute Lymphocytes Absolute Monocytes Absolute Eosinophils Absolute Basophils PT INR APTT VBG pH 7.30 L VBG pCO2 69 H* VBG pO2 122 VBG HCO3 34 H VBG Total CO2 31 H VBG O2 Saturation 99 VBG Base Excess 7 H VBG Lactate Sodium Potassium Chloride Carbon Dioxide Anion Gap BUN Creatinine Estimated GFR/1.73 m2 Glucose Calcium Magnesium 2.1 Total Bilirubin AST ALT Alkaline Phosphatase Ammonia Troponin I Total Protein Albumin TSH Urine Color Yellow Urine Clarity Clear Urine pH 5.5 Ur Specific [place] >= 1.030 H Urine Protein 30 H Urine Ketones Trace H Urine Blood Negative Urine Nitrite Negative Urine Bilirubin Negative Urine Urobilinogen 0.2 Ur Leukocyte Esterase Negative Urine RBC 3-5 H Urine WBC 3-5 Ur Epithelial Cells Negative Urine Crystals Negative Urine Bacteria Negative Urine Casts Negative Urine Mucus Moderate Urine Other Negative Ur Culture Indicated? No Urine Glucose Negative Salicylates Urine Opiates Screen Urine Methadone Screen Acetaminophen Ur Barbiturates Screen Ur Tricyclics Screen Ur Amphetamines Screen U Benzodiazepines Scrn Urine Cocaine Screen Ur THC Screen Ethyl Alcohol COVID-19 Source SARS-CoV-2 (PCR) 12/14/20 12/14/20 07:23 07:23 WBC 5.17 RBC 4.29 L Hgb 12.9 L Hct 41.2 MCV 96.0 H MCH 30.1 MCHC 31.3 L RDW 13.7 Plt Count 212 MPV 10.7 Immature Gran % 0.6 Neutrophils % 84.0 Lymphocytes % 13.5 Monocytes % 1.5 Eosinophils % 0.4 Basophils % 0.0 Nucleated RBC % 0 Absolute Neutrophils 4.34 Absolute Lymphocytes 0.70 L Absolute Monocytes 0.08 L Absolute Eosinophils 0.02 Absolute Basophils 0.00 PT INR APTT VBG pH VBG pCO2 VBG pO2 VBG HCO3 VBG Total CO2 VBG O2 Saturation VBG Base Excess VBG Lactate Sodium 137 Potassium 4.8 Chloride 99 Carbon Dioxide 34.4 H Anion Gap 3.6 BUN 13 D Creatinine 0.7 Estimated GFR/1.73 m2 >= 60.00 Glucose 156 H Calcium 8.4 L Magnesium Total Bilirubin 0.5 AST 34 ALT 40 Alkaline Phosphatase 68 Ammonia Troponin I Total Protein 7.5 Albumin 3.7 TSH Urine Color Urine Clarity Urine pH Ur Specific [place] Urine Protein Urine Ketones Urine Blood Urine Nitrite Urine Bilirubin Urine Urobilinogen Ur Leukocyte Esterase Urine RBC Urine WBC Ur Epithelial Cells Urine Crystals Urine Bacteria Urine Casts Urine Mucus Urine Other Ur Culture Indicated? Urine Glucose Salicylates Urine Opiates Screen Urine Methadone Screen Acetaminophen Ur Barbiturates Screen Ur Tricyclics Screen Ur Amphetamines Screen U Benzodiazepines Scrn Urine Cocaine Screen Ur THC Screen Ethyl Alcohol COVID-19 Source SARS-CoV-2 (PCR)
--- NOTE | 2020-12-14 09:51 | PDOC.CMIN ---
- If Service Date Differs Date of service: 12/14/20 Time of Service: 17:01 Care Management Initial Assess REASON FOR HOSPITALIZATION:: R CVA, Hypercarbia with oversedation, COPD Exacerbation PAST MEDICAL HISTORY/PAST SURGICAL HISTORY:: COPD (chronic obstructive pulmonary disease). Moderate opioid dependence on maintenance therapy. Polysubstance use disorder. Tobacco use disorder PREVIOUS FUNCTIONAL STATUS/SOCIAL/FAMILY SUPPORTS:: [facility]ides alone in [facility]. Independent at baseline in the community. Reports he has a roomate, not a caregiver, utilizes [facility] and is attached to [facility] for methodone maintenance. No other services at this time. CURRENT FUNCTIONAL STATUS:: Dexter was sitting on the side of his bed when CM met with him. He was pleasant in interaction and shared that he felt he could benefit from food resources and is in need of additional clothing. He also reports [facility] could be helpful for getting to his [facility] appointments. ADVANCE DIRECTIVES:: None on file at [facility]. Has patient been provided with info about the portal/API?: Yes Did the patient sign up for the portal?: No CODE STATUS:: Full Code INSURANCE COVERAGE / FINANCIAL ISSUES:: Medicaid CURRENT HOME/COMMUNITY SERVICES/EQUIPMENT:: Home Oxygen. Transitional housing. BAART: methadone maintenance program; daily medication. PRIMARY CARE PHYSICIAN:: Nicholas Wilcox POTENTIAL DISCHARGE NEEDS:: PCP attachment, outpatient follow up plan, service connection. PATIENT/FAMILY EDUCATION NEEDS:: Review discharge instructions, discuss Ask Me Three. ANTICIPATED BARRIERS TO DISCHARGE:: None identified. TRANSPORTATION:: Via private vehicle with [facility], or with a friend. PLAN:: Dexter will have an MRI and neurology consult, per MD. Anticipate Dexter will return to transitional housing when ready per MD. He will follow up with his PCP and plan of care as prescribed. He will transport via private vehicle with a friend.
[2020-12-14] MEDS: Methadone Liquid 10 MG/ML 40 MG PO (10:05)
[2020-12-14] MEDS: LORazepam 2 MG/ML VIAL 1 MG IVP (11:19)
--- NOTE | 2020-12-14 11:56 | CHAPLAIN ---
Dexter was sitting up in the chair when I visited. He said he expects to discharged to today and asked for a Bible. We had a brief conversation. I offered Internal Affairs Commander, Jerrica Bangura, suggestions for places to get food and a coat since Dexter identified to Jerrica food scarcity and the need of a warm coat as concerns.
--- NOTE | 2020-12-14 13:30 | PHA.REVIEW ---
Pharmacy Admission Review - Admission Clinical Review (Last Updated 12/14/20 @ 00:40 by Sergio Salamanca) Cerebellar cerebrovascular accident (CVA) without late effect (Acute) Acute respiratory failure with hypoxia and hypercarbia (Acute) Decompensated COPD with exacerbation (chronic obstructive pulmonary disease) (Acute) No Known Drug Allergies Allergy (Unverified 12/13/20 16:34) Height 5 ft 11 in Weight 115 kg Hypercarbia w/oversedation, COPD exacerbation - Comments Comments/Follow Ups: Chest infiltrates possibly infectious (Rocephin/Doxycycline), may need further CT to completely evaluate, IV steroids, oxygen requirement at home but currently on room air w/Sats 90% (his baseline). 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 Somnolence from polysubstance abuse, possibly took too much Gabapentin, BAART dose of Methadone was increased to 50mg just once, previous dose was 40mg...resuming Methadone 40mg daily. Chronic smoker-does have Nicotine replacement ordered - Renal Dosing Renal Dosing: BUN 13 mg/dL (7-18) D 12/14/20 07:23 Creatinine 0.7 mg/dL (0.70-1.30) 12/14/20 07:23 Medications needing adjustments: Reviewed (CrCl~125ml/min-no med adjustments needed) - Anticoagulation Anticoagulation: Hgb 12.9 g/dL (13.5-17.5) L 12/14/20 07:23 Hct 41.2 % (40.0-50.0) 12/14/20 07:23 Plt Count 212 10^3/uL (130-400) 12/14/20 07:23 INR 1.0 (0.9-1.1) 12/13/20 16:20 Creatinine 0.7 mg/dL (0.70-1.30) 12/14/20 07:23 DVT Prohphylaxis: N/A (Mobilization) - Relevant Labs Sodium 137 mmol/L (136-145) 12/14/20 07:23 Potassium 4.8 mmol/L (3.5-5.1) 12/14/20 07:23 Chloride 99 mmol/L (98-107) 12/14/20 07:23 Magnesium 2.1 mg/dL (1.8-2.4) 12/13/20 19:15 - DM Control DM Control: Glucose 156 mg/dL (74-106) H 12/14/20 07:23 Insulin Dosing: N/A - Heart Failure/LA Heart Failure/LA: Troponin I < 0.05 ng/mL (<0.06) 12/13/20 16:20 EF%, CARYN's, B-Blockers, Diuretics: N/A - BP Control BP Control: Blood Pressure 106/65 Blood Pressure 113/66 Blood Pressure 102/60 Blood Pressure 120/68 If elevated: N/A - Qtc Review If Elevated: Reviewed (QTC 471) - IV to PO Switch IV Medications: Reviewed (IV steroids) - Home Meds Home Med List reviewed: Reviewed (Gabapentin held at this time for somnolence) - Current meds Current Medication Order Review: Reviewed (Only meds for COPD exacerbation are Albuterol and IV Steroids, Nicotine patch is daily/prn, has not been applied at this time) - Comments Comments/Follow Ups: Tox screen was positive for his prescribed Methadone but also Cocaine
--- NOTE | 2020-12-14 15:31 | DSE_ITS ---
Date of service: 12/14/20 Time of Service: 15:32 DS: Diagnosis Discharge Diagnosis (1) Acute respiratory failure with hypoxia and hypercarbia: Status: Acute (2) Decompensated COPD with exacerbation (chronic obstructive pulmonary disease): Status: Acute (3) Cerebellar cerebrovascular accident (CVA) without late effect: Status: Acute (4) Tobacco abuse: Status: Chronic (5) Polysubstance abuse: Status: Chronic Discharge Plan Disposition Patient Disposition: HOME Condition: Stable Discharge Details Reason For Visit: HYPERCARBIA WITH OVERSEDATION, COPD EXACERBATION, Admit Date/Time: 12/13/20 21:04 Admit Provider: Sergio Salamanca Attending Provider: Sergio Salamanca Primary Care Provider: Unknown,Unknown Hospital Course Hospital Course: This is a 45-year-old male with a past medical history of methadone use, hepatitis C, COPD, who presents to the ED via EMS for altered mental status. Per record he was found at home unresponsive by his caregiver. When EMS arrived his oxygenation was 85%. Of note EMS did find a bottle of 800 mg of gabapentin, which was filled the day prior to arrival with a quantity of 90 pills, however there only about 40 pills left. His urine drug screen was also positive for cocaine. work up included head CT which showed evidence of potential stroke. His case was discussed with [facility] neurology team, and Dr. Angel personally reviewed the CT with his neuroradiologist. They felt that these findings concerning for stroke were more consistent with artifact rather than actual stroke. The patients mental status did improve and he remained hemodynamically stable, oxygenating well on room air. An MRI was obtained which confirmed that there was no abnormal findings in the inferior right cerebellar hemisphere to correspond to what was seen on CT scan and that there are no significant acute intracranial findings on this noninfused MRI scan of the brain. he is now at his baseline and requesting discharge to home. He had received doxycycline and ceftriaxone for infiltrate on xray. he will be discharged on augmentin for empiric treatment of possible aspiration. His respiratory status is stable with no cough, sob, hypoxia or fever. No other changes to medication. follow up with pcp, no services discharge discussed with Dr Rodriguez. Home Meds and New Rx's Prescriptions: New amoxicillin-pot clavulanate [Augmentin] 875-125 mg tablet 1 tab PO BID Qty: 10 RF: 0 Continued methadone 40 mg Tablet,Soluble 40 mg PO DAILY RF: 0 gabapentin 800 mg Tablet 800 mg PO TID RF: 0 Discharge Instructions Instructions: Acute Respiratory Failure (ED) Additional Instructions: take medication as prescribed only you will be given Augmentin for possible aspiration pneumonia. take antibiotic as prescribed even if you feel better. Stand Alone Forms: Nursing Discharge Form Referrals: Unknown,Unknown [Primary Care Provider] - (primary care provider) Activity:: Activity as Tolerated Equipment/Supplies:: No Equipment Needed Diet:: As Tolerated Discharge Orders Discharge Orders: Discharge Order (Routine); Ordered 12/14/20 Ordered By: Priti Jackson DS: Summary Time Spent with Patient providing and/or coordinating discharge services: Less than 30 minutes Status at Discharge Functional status at discharge: independent ambulation Overall status at discharge: patient is back to baseline Mental Status: mental status grossly normal Speech and Movement: speech and movement normal Mood: congruent mood Affect: normal affect Exam Const General: cooperative, no acute distress and ill appearing chronically Nutritional Appearance: overweight Orientation: alert, awake and oriented x3 HENMT Head: normal to inspection, normocephalic and atraumatic Eyes Alignment and Position: position abnormal left (dysconjugate) Eyelids: eyelid abnormality left upper eyelid ptosis Resp Effort & Inspection: normal respiratory effort Cardio Rate: regular rate Rhythm: regular rhythm GI Percussion: normal to percussion Auscultation: normal bowel sounds Skin General skin exam: no rashes or lesions noted Neuro General: patient alert, patient awake and patient oriented x3 Extrem General: normal to inspection and full ROM Psych Mental Status: mental status grossly normal Speech and Movement: speech and movement normal Mood: congruent mood Affect: normal affect Attitude: cooperative Thought Process: normal Thought Content: normal DS: Data Vitals/I&O Vitals and I&O: Vital Signs Temperature 36.7 C 12/14/20 13:53 Temperature Source Tympanic 12/14/20 13:53 Pulse 73 12/14/20 13:53 Pulse Rhythm Regular 12/14/20 14:16 Pulse 65 12/13/20 22:01 Respiratory Rate 20 12/14/20 13:53 Respiratory Effort Non-Labored 12/14/20 14:16 Respiratory Depth Normal 12/14/20 14:16 Respiratory Pattern Normal 12/14/20 14:16 Blood Pressure 121/69 12/14/20 13:53 Blood Pressure Mean 58 12/13/20 22:01 Pulse Oximetry 90 L 12/14/20 14:12 Oxygen Delivery Method Room Air 12/14/20 14:12 Oxygen Flow Rate 0 12/14/20 14:12 Fraction of Inspired Oxygen (FIO2) 35 12/14/20 13:26 Pain Level 0 12/14/20 13:53 Comment 12/13/20 15:25 Intake & Output 12/13/20 12/14/20 12/14/20 23:59 11:59 23:59 Intake Total 500 / 500 839 / 1079 240 / 1079 Output Total 1350 / 1350 Balance -850 / -850 839 / 1079 240 / 1079 Weight 113.398 kg 115 kg Intake: IV 500 / 500 239 / 239 Oral 600 / 840 240 / 840 Output: Urine 1350 / 1350 Other: Urine Color Yellow Urine Appearance Clear Clear Voiding Methods Toilet Data Completed and Pending Labs on day of discharge: Labs from last 24 hours 12/14/20 12/14/20 12/13/20 07:23 07:23 19:15 WBC 5.17 RBC 4.29 L Hgb 12.9 L Hct 41.2 MCV 96.0 H MCH 30.1 MCHC 31.3 L RDW 13.7 Plt Count 212 MPV 10.7 Immature Gran % 0.6 Neutrophils % 84.0 Lymphocytes % 13.5 Monocytes % 1.5 Eosinophils % 0.4 Basophils % 0.0 Nucleated RBC % 0 Absolute Neutrophils 4.34 Absolute Lymphocytes 0.70 L Absolute Monocytes 0.08 L Absolute Eosinophils 0.02 Absolute Basophils 0.00 PT INR APTT VBG pH VBG pCO2 VBG pO2 VBG HCO3 VBG Total CO2 VBG O2 Saturation VBG Base Excess VBG Lactate Sodium 137 Potassium 4.8 Chloride 99 Carbon Dioxide 34.4 H Anion Gap 3.6 BUN 13 D Creatinine 0.7 Estimated GFR/1.73 m2 >= 60.00 Glucose 156 H Calcium 8.4 L Magnesium 2.1 Total Bilirubin 0.5 AST 34 ALT 40 Alkaline Phosphatase 68 Ammonia Troponin I Total Protein 7.5 Albumin 3.7 TSH Urine Color Urine Clarity Urine pH Ur Specific [place] Urine Protein Urine Ketones Urine Blood Urine Nitrite Urine Bilirubin Urine Urobilinogen Ur Leukocyte Esterase Urine RBC Urine WBC Ur Epithelial Cells Urine Crystals Urine Bacteria Urine Casts Urine Mucus Urine Other Ur Culture Indicated? Urine Glucose Salicylates Urine Opiates Screen Urine Methadone Screen Acetaminophen Ur Barbiturates Screen Ur Tricyclics Screen Ur Amphetamines Screen U Benzodiazepines Scrn Urine Cocaine Screen Ur THC Screen Ethyl Alcohol COVID-19 Source SARS-CoV-2 (PCR) 12/13/20 12/13/20 12/13/20 19:15 18:45 18:45 WBC RBC Hgb Hct MCV MCH MCHC RDW Plt Count MPV Immature Gran % Neutrophils % Lymphocytes % Monocytes % Eosinophils % Basophils % Nucleated RBC % Absolute Neutrophils Absolute Lymphocytes Absolute Monocytes Absolute Eosinophils Absolute Basophils PT INR APTT VBG pH 7.30 L VBG pCO2 69 H* VBG pO2 122 VBG HCO3 34 H VBG Total CO2 31 H VBG O2 Saturation 99 VBG Base Excess 7 H VBG Lactate Sodium Potassium Chloride Carbon Dioxide Anion Gap BUN Creatinine Estimated GFR/1.73 m2 Glucose Calcium Magnesium Total Bilirubin AST ALT Alkaline Phosphatase Ammonia Troponin I Total Protein Albumin TSH Urine Color Yellow Urine Clarity Clear Urine pH 5.5 Ur Specific [place] >= 1.030 H Urine Protein 30 H Urine Ketones Trace H Urine Blood Negative Urine Nitrite Negative Urine Bilirubin Negative Urine Urobilinogen 0.2 Ur Leukocyte Esterase Negative Urine RBC 3-5 H Urine WBC 3-5 Ur Epithelial Cells Negative Urine Crystals Negative Urine Bacteria Negative Urine Casts Negative Urine Mucus Moderate Urine Other Negative Ur Culture Indicated? No Urine Glucose Negative Salicylates Urine Opiates Screen Negative Urine Methadone Screen Positive A Acetaminophen Ur Barbiturates Screen Negative Ur Tricyclics Screen Negative Ur Amphetamines Screen Negative U Benzodiazepines Scrn Negative Urine Cocaine Screen Positive A Ur THC Screen Negative Ethyl Alcohol COVID-19 Source SARS-CoV-2 (PCR) 12/13/20 12/13/20 12/13/20 16:20 16:20 16:20 WBC 7.30 RBC 4.20 L Hgb 13.0 L Hct 40.8 MCV 97.1 H MCH 31.0 MCHC 31.9 L RDW 13.7 Plt Count 224 MPV 10.7 Immature Gran % 0.4 Neutrophils % 62.9 Lymphocytes % 24.5 Monocytes % 10.7 Eosinophils % 1.1 Basophils % 0.4 Nucleated RBC % 0 Absolute Neutrophils 4.59 Absolute Lymphocytes 1.79 Absolute Monocytes 0.78 Absolute Eosinophils 0.08 Absolute Basophils 0.03 PT 10.4 INR 1.0 APTT 26.0 VBG pH 7.28 L VBG pCO2 75 H* VBG pO2 59 VBG HCO3 35 H VBG Total CO2 33 H VBG O2 Saturation 90 VBG Base Excess 8 H VBG Lactate Sodium Potassium Chloride Carbon Dioxide Anion Gap BUN Creatinine Estimated GFR/1.73 m2 Glucose Calcium Magnesium Total Bilirubin AST ALT Alkaline Phosphatase Ammonia Troponin I Total Protein Albumin TSH Urine Color Urine Clarity Urine pH Ur Specific [place] Urine Protein Urine Ketones Urine Blood Urine Nitrite Urine Bilirubin Urine Urobilinogen Ur Leukocyte Esterase Urine RBC Urine WBC Ur Epithelial Cells Urine Crystals Urine Bacteria Urine Casts Urine Mucus Urine Other Ur Culture Indicated? Urine Glucose Salicylates Urine Opiates Screen Urine Methadone Screen Acetaminophen Ur Barbiturates Screen Ur Tricyclics Screen Ur Amphetamines Screen U Benzodiazepines Scrn Urine Cocaine Screen Ur THC Screen Ethyl Alcohol COVID-19 Source SARS-CoV-2 (PCR) 12/13/20 12/13/20 12/13/20 16:20 16:20 16:20 WBC RBC Hgb Hct MCV MCH MCHC RDW Plt Count MPV Immature Gran % Neutrophils % Lymphocytes % Monocytes % Eosinophils % Basophils % Nucleated RBC % Absolute Neutrophils Absolute Lymphocytes Absolute Monocytes Absolute Eosinophils Absolute Basophils PT INR APTT VBG pH VBG pCO2 VBG pO2 VBG HCO3 VBG Total CO2 VBG O2 Saturation VBG Base Excess VBG Lactate 1.3 Sodium Potassium Chloride Carbon Dioxide Anion Gap BUN Creatinine Estimated GFR/1.73 m2 Glucose Calcium Magnesium Total Bilirubin AST ALT Alkaline Phosphatase Ammonia 28 Troponin I Total Protein Albumin TSH Urine Color Urine Clarity Urine pH Ur Specific [place] Urine Protein Urine Ketones Urine Blood Urine Nitrite Urine Bilirubin Urine Urobilinogen Ur Leukocyte Esterase Urine RBC Urine WBC Ur Epithelial Cells Urine Crystals Urine Bacteria Urine Casts Urine Mucus Urine Other Ur Culture Indicated? Urine Glucose Salicylates 3.8 Urine Opiates Screen Urine Methadone Screen Acetaminophen < 2 Ur Barbiturates Screen Ur Tricyclics Screen Ur Amphetamines Screen U Benzodiazepines Scrn Urine Cocaine Screen Ur THC Screen Ethyl Alcohol COVID-19 Source SARS-CoV-2 (PCR) 12/13/20 12/13/20 16:20 16:20 WBC RBC Hgb Hct MCV MCH MCHC RDW Plt Count MPV Immature Gran % Neutrophils % Lymphocytes % Monocytes % Eosinophils % Basophils % Nucleated RBC % Absolute Neutrophils Absolute Lymphocytes Absolute Monocytes Absolute Eosinophils Absolute Basophils PT INR APTT VBG pH VBG pCO2 VBG pO2 VBG HCO3 VBG Total CO2 VBG O2 Saturation VBG Base Excess VBG Lactate Sodium 139 Potassium 4.5 Chloride 100 Carbon Dioxide 35.0 H Anion Gap 4.0 BUN 21 H Creatinine 0.9 Estimated GFR/1.73 m2 >= 60.00 Glucose 126 H Calcium 8.4 L Magnesium Total Bilirubin 0.6 AST 36 ALT 38 Alkaline Phosphatase 68 Ammonia Troponin I < 0.05 Total Protein 7.5 Albumin 3.9 TSH 1.66 Urine Color Urine Clarity Urine pH Ur Specific [place] Urine Protein Urine Ketones Urine Blood Urine Nitrite Urine Bilirubin Urine Urobilinogen Ur Leukocyte Esterase Urine RBC Urine WBC Ur Epithelial Cells Urine Crystals Urine Bacteria Urine Casts Urine Mucus Urine Other Ur Culture Indicated? Urine Glucose Salicylates Urine Opiates Screen Urine Methadone Screen Acetaminophen Ur Barbiturates Screen Ur Tricyclics Screen Ur Amphetamines Screen U Benzodiazepines Scrn Urine Cocaine Screen Ur THC Screen Ethyl Alcohol < 3.0 COVID-19 Source Nasal/nares SARS-CoV-2 (PCR) Negative COUNTS INCLUDE 234 BEDS AT [facility] Medical History (Updated 12/14/20 @ 00:40 by Sergio Salamanca) COPD (chronic obstructive pulmonary disease) Moderate opioid dependence on maintenance therapy Polysubstance abuse Tobacco abuse Social History Smoking/Tobacco Use Status: Former Tobacco Use Smoking risk assessment performed?: Yes Alcohol Intake: former Drug use: Occasionally Substance use type: former substance user, marijuana and heroin Details: States last Heroin use was 2 months ago. States he does not want any Narcan. Do you feel safe at home: Yes Do you feel safe in your relationship?: Yes
== END 2020-12-14 15:53 | disposition home or self-care (01) | DRG 917 ==
LOC: ER 21:31 → MS 22:09
PROVIDERS: Admitting Provider Family Medicine; Emergency Provider Student in an Organized Health Care Education/Training Program; Visit Provider Family Medicine
DX: T42.6X1A Poisoning by other antiepileptic and sedative-hypnotic drugs, accidental (unintentional), initial encounter (principal); J96.01 Acute respiratory failure with hypoxia; J96.02 Acute respiratory failure with hypercapnia; J44.1 Chronic obstructive pulmonary disease with (acute) exacerbation; F11.20 Opioid dependence, uncomplicated; F17.210 Nicotine dependence, cigarettes, uncomplicated; G47.30 Sleep apnea, unspecified; E66.9 Obesity, unspecified; Z68.35 Body mass index [BMI] 35.0-35.9, adult; F19.10 Other psychoactive substance abuse, uncomplicated; B19.20 Unspecified viral hepatitis C without hepatic coma
CPT/HCPCS: 36415; 51702; 70496; 70498; 71250; 80053; 80307; 82805; 87635; 93005; 96360; 99217; 99223; 99233; 99285; 70450; 70551; 80320; 80329; 81003; 81015; 82140; 83605; 83735; 84443; 84484; 85025; 85610; 85730; 93010; 94660; J0696; J2060; J2930; J3490; J7613

== ENCOUNTER 2021-02-02 07:57 | Outpatient (CLI) | payer MEDICAID, SELFPAY | END 2021-02-02 07:58 | disposition home or self-care (01) | LOC: LBN 08:00 | PROVIDERS: Visit Provider Family Medicine | DX: R00.1 Bradycardia, unspecified (principal); Z79.899 Other long term (current) drug therapy | CPT/HCPCS: 93005; 93010 ==

== ENCOUNTER 2021-05-29 10:51 | Outpatient (REF) | payer MEDICAID, SELFPAY ==
[2021-05-29 15:31] LABS: HCT 42.6 % (40.0-50.0); HGB 13.5 g/dL (13.5-17.5); MCH 28.6 pg (27.0-33.0); MCHC 31.7 % (32.0-36.0); MCV 90.3 fL (80-95); MPV 11.3 fL (8.0-11.0); Platelet Count 286 10^3/uL (130-400); RBC 4.72 10^6/uL (4.36-5.78); RDW 14.3 % (11.8-14.1); RDW-SD 47.5 fL; WBC 7.28 10^3/uL (4.4-10.8)
[2021-05-29 16:00] LABS: ALT 36 U/L (16-63); AST 31 U/L (15-37); Alkaline Phosphatase 99 U/L (46-116); Anion Gap 9.9 mmol/L (3-11); BUN 13 mg/dL (7-18); Bilirubin, Total 0.4 mg/dL (0.2-1.0); CO2 30.1 mmol/L (21.0-32.0); CREATININE 0.8 mg/dL (0.70-1.30); Calcium 9.3 mg/dL (8.5-10.1); Calculated LDL 92 mg/dL (<100); Chloride 100 mmol/L (98-107); Cholesterol 150 mg/dL (<200); Glucose 75 mg/dL (74-106); HDL Cholesterol 43 mg/dL (40-60); Potassium 4.7 mmol/L (3.5-5.1); Sodium 140 mmol/L (136-145); Total Protein 7.6 g/dL (6.4-8.2); Triglyceride 79 mg/dL (<150)
[2021-05-30 10:00] LABS: Hepatitis B Surface Ag Negative (Negative)
[2021-05-30 10:42] LABS: Hep B Core Antibody Negative (Negative)
[2021-05-30 10:55] LABS: Hep A Total Ab w Rflx IgM Positive (Negative)
[2021-05-30 10:56] LABS: Hepatitis C Ab w Rflx HCV PCR Reactive (Negative)
[2021-05-30 11:41] LABS: HIV-1/2 Ag & Ab Screen Negative (Negative)
[2021-05-30 16:09] LABS: Hep A Antibody IgM Negative (Negative)
[2021-05-31 14:59] LABS: HCV RNA Detection Quantitative 11300000 IU/mL (Undetected); HCV RNA Qualitative Detected (Undetected)
== END 2021-05-29 10:52 | disposition home or self-care (01) ==
LOC: NCHCN 10:51
PROVIDERS: Visit Provider Physician Assistant
DX: B19.20 Unspecified viral hepatitis C without hepatic coma (principal)
CPT/HCPCS: 80053; 80061; 85027; 86704; 86709; 86803; 87340; 87389; 87522

== ENCOUNTER 2021-08-29 06:42 | Emergency (ER) | payer MEDICAID, SELFPAY ==
[2021-08-29 06:44] VITALS: BP 157/100; PULSE 67; RESP 18; TEMP 36.6; O2SAT 99
--- NOTE | 2021-08-29 06:48 | ED.GENADUL_ITS ---
Discharge Plan Disposition Patient Disposition: HOME Condition: Good Discharge Details Clinical Impression: Anxiety Primary Care Provider: Unknown,Unknown ED Provider: Albaro Maldonado Home Meds and New Rx's Prescriptions: Continued methadone 40 mg Tablet,Soluble 40 mg PO DAILY RF: 0 gabapentin 800 mg Tablet 800 mg PO TID RF: 0 amoxicillin-pot clavulanate [Augmentin] 875-125 mg tablet 1 tab PO BID Qty: 10 RF: 0 Discharge Instructions Instructions: Anxiety (ED) Additional Instructions: You have had a mild panic attack today. You have been given a small dose of Ativan, 0.5 mg to help with this. Do not take any other anxiolytic medications or methadone for the next 3 to 5 hours as this can cause increased fatigue and diminished mental status. Please follow-up closely with your counselor. If you notice any worsening of your symptoms, or any new symptoms such as vomiting, diarrhea, fever, chills, shortness of breath, chest pain, numbness, weakness, or fainting , please return immediately to the emergency department for reevaluation. Please follow up with your primary care provider as soon as possible for reassessment and reevaluation. As always, it was a pleasure participating in your medical care today. Medical Decision Making 46-year-old male with a past medical history of methadone use, hepatitis C, COPD, presents today for a panic attack. Patient states that his mother 6 months ago, and he had a lamar reminder of this this evening. He admits to feelings of anxiety that occurred a few hours prior to arrival. He contacted EMS, and they brought him to the ER. He denies any chest pain or short of breath. On the way here he began to feel much better. He denies any falls, trauma, IV or illicit drug use homicidal or suicidal ideations. He denies any fever or chills. He states that he feels much better and would like to go home. No other complaints at this time. No other modifying factors. No recent IV or illicit drug use. No alcohol use. Physical exam is notably unremarkable, vital signs also very stable. No neurologic deficits, no radial pulse asymmetry. Symptoms inconsistent with dissection, stroke, or polysubstance abuse. Patient demonstrates symptoms consistent with a mild panic attack which is now resolved. Will give 0.5 mg of Ativan to help with any remaining anxiety, recommend close follow-up with his counselor and PCP. Recommend avoidance of other pain medications or anxiolytic medications for the next few hours. I have extensively reviewed the treatment plan and discharge instructions with the patient. I have addressed all patient concerns at this time. The patient was made aware of what symptoms to monitor for that would warrant a return to the emergency department. Discussed the plan with the patient, they demonstrate verbal understanding and agreement with our assessment and plan at this time. The documentation in this chart was dictated using Cloud[employer] dictation software. Please excuse any dictation errors. HPI General Date/Time Provider Initiated Documentation: 08/29/21 06:48 . HPI Narrative: 46-year-old male with a past medical history of methadone use, hepatitis C, COPD, presents today for a panic attack. Patient states that his mother 6 months ago, and he had a lamar reminder of this this evening. He admits to feelings of anxiety that occurred a few hours prior to arrival. He contacted EMS, and they brought him to the ER. He denies any chest pain or short of breath. On the way here he began to feel much better. He denies any falls, trauma, IV or illicit drug use homicidal or suicidal ideations. He denies any fever or chills. He states that he feels much better and would like to go home. No other complaints at this time. No other modifying factors. No recent IV or illicit drug use. No alcohol use. Related Data Home Medications Medication Instructions Recorded Confirmed gabapentin 800 mg PO TID 12/13/20 12/13/20 methadone 40 mg PO DAILY 12/13/20 12/13/20 amoxicillin-pot clavulanate 1 tab PO BID #10 tab 12/14/20 [Augmentin] Previous Rx's Medication Instructions Recorded amoxicillin-pot clavulanate 1 tab PO BID #10 tab 12/14/20 [Augmentin] Allergies Allergy/AdvReac Type Severity Reaction Status Date / Time No Known Drug Allergies Allergy Unverified 12/13/20 16:34 General Stated Complaint: Anxiety SILVA: 3 Review of Systems All systems reviewed & are unremarkable except as noted in HPI and below FOR[facility]LY [facility] Active Problem List Anxiety (Chronic) Moderate opioid dependence on maintenance therapy (Acute) Polysubstance abuse (Chronic) Tobacco abuse (Chronic) Cerebellar cerebrovascular accident (CVA) without late effect (Acute) Acute respiratory failure with hypoxia and hypercarbia (Acute) Decompensated COPD with exacerbation (chronic obstructive pulmonary disease) (Acute) COPD (chronic obstructive pulmonary disease) (Chronic) Social History Smoking/Tobacco Use Status: Former Tobacco Use Smoking risk assessment performed?: Yes Alcohol Intake: former Drug use: Occasionally Substance use type: former substance user, marijuana and heroin Details: States last Heroin use was 2 months ago. States he does not want any Narcan. Do you feel safe at home: Yes Do you feel safe in your relationship?: Yes Exam Narrative Exam Narrative: 1.Const: Well-nourished, Well-developed, appearing stated age 2.Eyes: PERRL, no conjunctival injection, and symmetrical lids. 3.ENT: Atraumatic external nose and ears. Moist MM. Neck: Symmetric, trachea midline, No thyromegaly. 4.CVS: +S1/S2, No murmurs or gallops. Peripheral pulses 2+ and equal in all extremities. Brisk capillary refill in all extremities. 5.RESP: Unlabored respiratory effort. Clear to auscultation bilaterally. No wheezes rales or rhonchi 6.GI: Soft, Nontender/Nondistended, No hepatosplenomegaly. No guarding or rebound. 7.MSK: Normocephalic/Atraumatic, Extremities w/o deformity or ttp No cyanosis or clubbing, Normal movement of all extremities 8.Skin: Warm, Dry. No rashes or lesions. 9.Neuro: telegraph service rater II-XII grossly intact. Sensation grossly intact, no focal neurologic deficits. 10.Psych: (AAO) x3. Appropriate mood and affect Course Vital Signs Vital signs: Vital Signs Temperature 36.6 C 08/29/21 06:44 Pulse 67 08/29/21 06:44 Respiratory Rate 18 08/29/21 06:44 Blood Pressure 157/100 H 08/29/21 06:44 Pulse Oximetry 99 08/29/21 06:44 Temperature 36.6 C 08/29/21 06:44 Temperature Source Tympanic 08/29/21 06:44 Pulse 67 08/29/21 06:44 Respiratory Rate 18 08/29/21 06:44 Respiratory Effort 08/29/21 06:47 Blood Pressure 157/100 H 08/29/21 06:44 Blood Pressure Position Sitting 08/29/21 06:44 Pulse Oximetry 99 08/29/21 06:44 Oxygen Delivery Method Room Air 08/29/21 06:44 Oxygen Flow Rate 0 08/29/21 06:44 Pain Level 0 08/29/21 06:44
[2021-08-29] MEDS: LORazepam 0.5 MG TAB PO (06:51)
== END 2021-08-29 07:08 | disposition home or self-care (01) ==
LOC: ER 07:07
PROVIDERS: Emergency Provider Student in an Organized Health Care Education/Training Program
DX: F41.9 Anxiety disorder, unspecified (principal); F41.0 Panic disorder [episodic paroxysmal anxiety]
CPT/HCPCS: 99283

== ENCOUNTER 2021-10-19 16:45 | Outpatient (REF) | payer MEDICAID, SELFPAY ==
[2021-10-19 14:28] LABS: HCT 40.3 % (40.0-50.0); HGB 11.8 g/dL (13.5-17.5); MCH 29.4 pg (27.0-33.0); MCHC 29.3 % (32.0-36.0); MCV 100.5 fL (80-95); MPV 10.9 fL (8.0-11.0); Platelet Count 269 10^3/uL (130-400); RBC 4.01 10^6/uL (4.36-5.78); RDW 14.4 % (11.8-14.1); RDW-SD 53.6 fL; WBC 7.28 10^3/uL (4.4-10.8)
[2021-10-19 14:44] LABS: ALT 26 U/L (16-63); AST 21 U/L (15-37); Albumin 3.5 g/dL (3.4-5.0); Alkaline Phosphatase 92 U/L (46-116); Anion Gap 5.2 mmol/L (3-11); BUN 9 mg/dL (7-18); Bilirubin, Total 0.2 mg/dL (0.2-1.0); CO2 31.8 mmol/L (21.0-32.0); CREATININE 0.6 mg/dL (0.70-1.30); Calcium 8.3 mg/dL (8.5-10.1); Chloride 103 mmol/L (98-107); Glucose 100 mg/dL (74-106); Potassium 4.2 mmol/L (3.5-5.1); Sodium 140 mmol/L (136-145); Total Protein 6.5 g/dL (6.4-8.2)
== END 2021-10-19 16:46 | disposition home or self-care (01) ==
LOC: NCHCN 16:45
PROVIDERS: Visit Provider Physician Assistant
DX: R60.0 Localized edema (principal)
CPT/HCPCS: 80053; 85027

== ENCOUNTER 2021-10-23 06:06 | Emergency (ER) | payer MEDICAID, SELFPAY ==
[2021-10-23 06:04] VITALS: BP 155/90; PULSE 65; RESP 18; TEMP 36.5; O2SAT 97
--- NOTE | 2021-10-23 06:09 | W.ED.GENAD ---
Discharge Plan Disposition Patient Disposition: HOME Condition: Good Discharge Details Clinical Impression: Anxiety Primary Care Provider: Unknown,Unknown ED Provider: Albaro Maldonado Home Meds and New Rx's Prescriptions: Continued methadone 40 mg Tablet,Soluble 40 mg PO DAILY RF: 0 gabapentin 800 mg Tablet 800 mg PO TID RF: 0 amoxicillin-pot clavulanate [Augmentin] 875-125 mg tablet 1 tab PO BID Qty: 10 RF: 0 Discharge Instructions Instructions: Anxiety (ED) Additional Instructions: At this time it seems that your anxiety is well controlled with the Ativan. Please follow-up closely with Nicholas Wilcox discussion about further medications for this. Please discuss with the methadone clinic that you can take Ativan today prior to arrival as this may interact with the methadone. If you notice any worsening of your symptoms, or any new symptoms such as vomiting, diarrhea, fever, chills, shortness of breath, chest pain, numbness, weakness, or fainting , please return immediately to the emergency department for reevaluation. Please follow up with your primary care provider as soon as possible for reassessment and reevaluation. As always, it was a pleasure participating in your medical care today. Referrals: Nicholas Wilcox [ NON-[facility] STAFF PHYSICIAN] - Medical Decision Making 46-year-old male with a past medical history of methadone use, hepatitis C, COPD, presents today for a panic attack. Patient was seen in July for a similar event. At that time his mother had recently , however tonight he states that his sibling got in a bad car accident which she sent him into panic mode. He was also started on steroids 3 days ago for mild asthma/COPD exacerbation. He denies any homicidal or suicidal ideation. He has not been noted panic attack, he did contact the events, they evaluated the patient and brought him into the ER for further assessment. Currently the patient states that he feels slightly better still feels notably panic. He states his goal of therapy today is to be able to chest feels less panicked right now. He denies any current chest pain, shortness of breath, syncope, numbness tingling or weakness. He denies any IV or illicit drug use tonight. No other complaints at this time. Physical exam is unremarkable, vital signs are stable. Although the patient is ANO x3, and his mood and affect appear reasonable, he does appear notably tremulous and nervous. There is a notable amount of hand wringing, and fishy movements. He seems very stressed at this time, and I do feel that there may certainly be a component of a mild panic attack. I did discuss with the patient felt that long-term treatment for these panic attacks is best found on an outpatient basis working closely with his primary care provider. He states that he will call Dr. Nicholas Wilcox's office tomorrow, and have a discussion for some anxiolytics at home if needed. We will give 1 Ativan pill here tonight to help the patient with his current mood however I do feel that he will be appropriate for outpatient management after this. With normal vital signs, and otherwise stable clinical appearance. I do feel that the patient does not require any further work-up at this time. 6:30 AM Patient is feeling much better after Ativan. He states that he is ready to go. He states that he does need to go to the methadone clinic, and I advised him to be cautious with methadone after receiving Ativan and recommended that he discuss taking methadone with his methadone prescriber specifically discussing that he had Ativan today. Additionally the patient did for an Ativan to go home with in case this happens again. I discussed with him that this would not be best treated from the emergency department however I reassured him that I would send my note directly to his care provider Nicholas Wilcox so that he could review it and discuss it with the patient today when the patient calls his office. Patient appears stable for discharge. I have extensively reviewed the treatment plan and discharge instructions with the patient. I have addressed all patient concerns at this time. The patient was made aware of what symptoms to monitor for that would warrant a return to the emergency department. Discussed the plan with the patient, they demonstrate verbal understanding and agreement with our assessment and plan at this time. The documentation in this chart was dictated using [employer] dictation software. Please excuse any dictation errors. HPI General Date/Time Provider Initiated Documentation: 10/23/21 06:07. HPI Narrative: 46-year-old male with a past medical history of methadone use, hepatitis C, COPD, presents today for a panic attack. Patient was seen in July for a similar event. At that time his mother had recently , however tonight he states that his sibling got in a bad car accident which she sent him into panic mode. He was also started on steroids 3 days ago for mild asthma/COPD exacerbation. He denies any homicidal or suicidal ideation. He has not been noted panic attack, he did contact the events, they evaluated the patient and brought him into the ER for further assessment. Currently the patient states that he feels slightly better still feels notably panic. He states his goal of therapy today is to be able to chest feels less panicked right now. He denies any current chest pain, shortness of breath, syncope, numbness tingling or weakness. He denies any IV or illicit drug use tonight. No other complaints at this time. Related Data Home Medications Medication Instructions Recorded Confirmed gabapentin 800 mg PO TID 12/13/20 12/13/20 methadone 40 mg PO DAILY 12/13/20 12/13/20 amoxicillin-pot clavulanate 1 tab PO BID #10 tab 12/14/20 [Augmentin] Previous Rx's Medication Instructions Recorded amoxicillin-pot clavulanate 1 tab PO BID #10 tab 12/14/20 [Augmentin] Allergies Allergy/AdvReac Type Severity Reaction Status Date / Time No Known Drug Allergies Allergy Unverified 12/13/20 16:34 General Stated Complaint: Anxiety SILVA: 4 Review of Systems All systems reviewed & are unremarkable except as noted in HPI and below PFSH All Active Problems (Updated 10/23/21 @ 06:28 by Albaro Maldonado DO) Anxiety (Chronic) Moderate opioid dependence on maintenance therapy (Acute) Polysubstance abuse (Chronic) Tobacco abuse (Chronic) Cerebellar cerebrovascular accident (CVA) without late effect (Acute) Acute respiratory failure with hypoxia and hypercarbia (Acute) Decompensated COPD with exacerbation (chronic obstructive pulmonary disease) (Acute) COPD (chronic obstructive pulmonary disease) (Chronic) Social History Smoking/Tobacco Use Status: Former Tobacco Use Smoking risk assessment performed?: Yes Alcohol Intake: former Drug use: Occasionally Substance use type: former substance user, marijuana and heroin Details: States last Heroin use was 2 months ago. States he does not want any Narcan. Do you feel safe at home: Yes Do you feel safe in your relationship?: Yes Exam Narrative Exam Narrative: 1.Const: Well-nourished, Well-developed, appearing stated age 2.Eyes: PERRL, no conjunctival injection, and symmetrical lids. Chronic old scarring of the left eye 3.ENT: Atraumatic external nose and ears. Moist MM. Neck: Symmetric, trachea midline, No thyromegaly. 4.CVS: +S1/S2, No murmurs or gallops. Peripheral pulses 2+ and equal in all extremities. Brisk capillary refill in all extremities. 5.RESP: Unlabored respiratory effort. Clear to auscultation bilaterally. No wheezes rales or rhonchi 6.GI: Soft, Nontender/Nondistended, No hepatosplenomegaly. No guarding or rebound. 7.MSK: Normocephalic/Atraumatic, Extremities w/o deformity or ttp No cyanosis or clubbing, Normal movement of all extremities 8.Skin: Warm, Dry. No rashes or lesions. 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 Sensation grossly intact, no focal neurologic deficits. 10.Psych: (AAO) x3. Appropriate mood and affect Course Vital Signs Vital signs: Vital Signs Temperature 36.5 C 10/23/21 06:04 Pulse 65 10/23/21 06:04 Respiratory Rate 18 10/23/21 06:04 Pulse Oximetry 97 10/23/21 06:04 Temperature 36.5 C 10/23/21 06:04 Temperature Source Temporal Artery Scan 10/23/21 06:04 Pulse 65 10/23/21 06:04 Respiratory Rate 18 10/23/21 06:04 Blood Pressure Position Supine 10/23/21 06:04 Pulse Oximetry 97 10/23/21 06:04 Pain Level 5 10/23/21 06:04
[2021-10-23 06:12] VITALS: BP 155/90; PULSE 62; RESP 18; O2SAT 98
[2021-10-23] MEDS: LORazepam 1 MG TAB PO (06:15)
== END 2021-10-23 06:33 | disposition home or self-care (01) ==
LOC: ER 06:34
PROVIDERS: Emergency Provider Student in an Organized Health Care Education/Training Program
DX: F41.9 Anxiety disorder, unspecified (principal); R06.02 Shortness of breath
CPT/HCPCS: 99283

== ENCOUNTER 2021-12-03 06:08 | Emergency (ER) | payer MEDICAID, SELFPAY ==
[2021-12-03 06:17] VITALS: BP 128/65; PULSE 63; RESP 20; TEMP 36.7; O2SAT 98
[2021-12-03 06:22] VITALS: RESP 18
--- NOTE | 2021-12-03 06:42 | W.ED.GENAD ---
Discharge Plan Disposition Patient Disposition: HOME Condition: Good Discharge Details Clinical Impression: Anxiety Primary Care Provider: Unknown,Unknown ED Provider: Aman Frazier Clawson Meds and New Rx's Prescriptions: No Action methadone 40 mg Tablet,Soluble 40 mg PO DAILY 0RF gabapentin 800 mg Tablet 800 mg PO TID 0RF Discharge Instructions Instructions: Anxiety (ED) Additional Instructions: Be sure to follow-up with primary care this week as scheduled for further management and referral to mental health. You may also contact [facility] as they do have mental health services available. Return to ED for any new or worsening chest pain, shortness of breath, uncontrolled anxiety, unsafe feelings. [facility]] Nicholas Wilcox [ NON-[facility] STAFF PHYSICIAN] - Medical Decision Making Patient has responded to 0.5 mg dose of Ativan when he has presented to the ED with similar complaint. He does have follow-up with primary care for mental health referral. He is interested in referral to [facility] as he was unaware of their services. He is looking to be put on something for maintenance to prevent anxiety. He does have a fair amount of wheezing which he reports is chronic. He does not feel any more short of breath than usual. He is not having chest pain. I do not feel that he requires imaging or labs. Will provide dose of Ativan here as it has worked in the past. We will have him follow-up with primary care as planned. Return to ED for any new or worsening symptoms. Medical Records Medical records reviewed: Yes I reviewed the patient's medical records. HPI General Mode of arrival: ambulatory. Date/Time Provider Initiated Documentation: 12/03/21 06:11. Limitations to Documentation: no limitations. Information obtained by: patient, RN notes reviewed and old records reviewed. HPI Narrative: Patient presents to the ED with complaint of anxiety. Patient has couple of visits for same. Woke up this morning has been unable to calm himself down. He has been arrangements to follow-up with primary care this coming week for mental health referral. He was unaware of [facility] offering mental health. He would like to be on something to bring his anxiety under control but he does not require coming to the ED for medications. He continues on methadone. He also uses marijuana. He is quite anxious but denies having any chest pain it is no more short of breath than usual given his COPD and continued smoking. Related Data Home Medications Medication Instructions Recorded Confirmed gabapentin 800 mg tablet 800 mg PO TID 12/13/20 12/03/21 methadone 40 mg soluble tablet 40 mg PO DAILY 12/13/20 12/03/21 Allergies Allergy/AdvReac Type Severity Reaction Status Date / Time No Known Drug Allergies Allergy Unverified 12/03/21 06:29 General Stated Complaint: Anxiety SILVA: 5 Review of Systems Narrative: As documented in HPI otherwise negative as below. Const: no fever, chills, weakness Resp: no cough, pleuritic pain CV: no CP, diaphoresis, edema, syncope GI: no nausea, vomiting, diarrhea Neuro: no headache, numbness, focal weakness, confusion PFSH All Active Problems (Updated 12/03/21 @ 06:53 by Aman Frazier MD) Anxiety (Chronic) Polysubstance abuse (Chronic) Tobacco abuse (Chronic) Acute respiratory failure with hypoxia and hypercarbia (Acute) Decompensated COPD with exacerbation (chronic obstructive pulmonary disease) (Acute) Medical History Cerebellar cerebrovascular accident (CVA) without late effect COPD (chronic obstructive pulmonary disease) Moderate opioid dependence on maintenance therapy Social History Smoking/Tobacco Use Status: Current every day Smoking risk assessment performed?: Yes Alcohol Intake: former Drug use: Occasionally Substance use type: former substance user, marijuana and heroin Do you feel safe at home: Yes Do you feel safe in your relationship?: Yes Exam Narrative Exam Narrative: Const: WDWN male in NAD but clearly anxious. HEENT: NC/AT. Normal facial exam. Neck: Supple. Trachea midline. Lungs: Normal respiratory effort. Lungs with wheeze and prolonged expiratory phase. Cor: RRR without murmur/gallop. Good radial pulses. Neuro: A+O x 3. Normal speech, mentation, gait. No gross motor or sensory deficit. Ext: No C/C/E. Skin: Warm and dry without rash. Psych: Anxious. No SI. Course Vital Signs Vital signs: Vital Signs Temperature 98.1 F 12/03/21 06:17 Pulse 63 12/03/21 06:17 Respiratory Rate 20 12/03/21 06:17 Blood Pressure 128/65 12/03/21 06:17 Pulse Oximetry 98 12/03/21 06:17 Temperature 98.1 F 12/03/21 06:17 Temperature Source Skin 12/03/21 06:17 Pulse 63 12/03/21 06:17 Respiratory Rate 18 12/03/21 06:22 Respiratory Effort 12/03/21 06:22 Blood Pressure 128/65 12/03/21 06:17 Blood Pressure Position Sitting 12/03/21 06:17 Pulse Oximetry 98 12/03/21 06:17 Oxygen Delivery Method Room Air 12/03/21 06:17 Oxygen Flow Rate 0 12/03/21 06:17 Pain Level 5 12/03/21 06:17
[2021-12-03] MEDS: LORazepam 0.5 MG TAB PO (06:46)
== END 2021-12-03 07:07 | disposition home or self-care (01) ==
PROVIDERS: Emergency Provider Emergency Medicine; PCP Physician Assistant
DX: F41.9 Anxiety disorder, unspecified (principal)
CPT/HCPCS: 99283

== ENCOUNTER 2021-12-03 17:02 | Emergency (ER) | payer MEDICAID, SELFPAY ==
[2021-12-03 17:22] VITALS: BP 159/95; PULSE 65; RESP 22; TEMP 36.2; O2SAT 100
[2021-12-03 17:24] VITALS: BP 159/95; PULSE 65; PULSE 66; RESP 20; O2SAT 98
[2021-12-03 17:29] VITALS: RESP 22
--- NOTE | 2021-12-03 17:30 | RT.EKG_ITS ---
APPROVED REPORT Exam: Resting ECG Reason for Exam: anxiety Patient Location: E HR:59 bpm ECG Measurements Heart Rate 59 AXIS HI 197 P 67 QRSd 112 QRS 36 QT 419 T 62 QTc 417 Conclusion Sinus bradycardia...rate< 60. Sinus. Normal axis. No STEMI. I have reviewed and interpreted ECG and agree with software generated interpretation.
[2021-12-03 17:31] VITALS: BP 155/92; PULSE 71; PULSE 75; RESP 24; O2SAT 99
[2021-12-03 17:46] VITALS: BP 155/99; PULSE 67; PULSE 71; RESP 22; O2SAT 99
--- NOTE | 2021-12-03 17:48 | ED.GENADUL_ITS ---
Discharge Plan Disposition Patient Disposition: HOME Condition: Improving Discharge Details Clinical Impression: Panic attack Primary Care Provider: Unknown,Unknown ED Provider: Addy Martin Home Meds and New Rx's Prescriptions: Continued methadone 40 mg Tablet,Soluble 40 mg PO DAILY 0RF gabapentin 800 mg Tablet 800 mg PO TID 0RF Discharge Instructions Instructions: Panic Attack (ED) Additional Instructions: You were given a single dose of Ativan here in the ER and a single tablet to take home with if you needed this evening. You were also given a single dose of your gabapentin which you have run out of. As we discussed, please watch for new or worsening symptoms and return to the ER for any concerns. Contact both the mental health team tomorrow and your primary care team tomorrow. As we discussed, please ask your primary care provider for a refill of your gabapentin and you can discuss a potential prescription for Ativan if they are agreeable to this but this is not a typical prescription that will come from the ER. Discharge Data Discharge Date/Time-TO BE ENTERED AT DEPARTURE: 12/03/21 19:07 Medical Decision Making 46-year-old gentleman who reports severe anxiety and panic attacks, presents to the ER reporting worsening symptoms progressively over the past 9-month since his mother . He was seen in the ER this morning, given a single half milligram of Ativan, and given mental health resources. Patient reports severe anxiety attack roughly 1 hour ago. Because he reported diaphoresis and subjective shortness of breath, screening EKG was obtained so he denies any chest pain, cough, history of DVT or PE. Given his presentation extremely low suspicion for ACS or PE. We did discuss medical etiologies regarding his presentation but he reports this feels exactly like previous presentations of his anxiety and panic attacks and does not wish to proceed with a more inclusive medical work-up. Plan is to give a single dose of 1 mg Ativan and his 800 of gabapentin and reassess. EKG was unremarkable. Patient reports significant improvement with the p.o. Ativan and reports that he is now feeling back to baseline. He is actually requesting discharge now. I will provide him with a single tablet of 1 mg At [place] that he may use tonight if he develops another panic attack. Strict discharge and return precautions were provided. Otherwise he plans to reach out to both his primary care provider and mental health team to discuss his ongoing symptoms and need for reevaluation. We did discuss his wheezing, he reports this is baseline, he denies any shortness of breath, and is currently satting at 99% on room air. This documentation was generated using [employer] dictation system, please disregard any oddities of phrase or misspellings. Medical Records Medical records reviewed: Yes I reviewed the patient's medical records. ECG Data Attestation: I personally reviewed and interpreted this ECG (s) as follows: Interpretation: Please see official report by Dr. Rubin. Sinus bradycardia, ventricular rate of 59, no STEMI. HPI General Mode of arrival: ambulatory . Date/Time Provider Initiated Documentation: 12/03/21 17:03 . Limitations to Documentation: no limitations . Information obtained by: patient . HPI Narrative: This is a 46-year-old gentleman, past medical history of CVA, COPD, opiate dependence now on methadone, anxiety and panic attacks, presenting to the ER reporting a severe panic attack that began about 1 hour ago. Patient states that he has been dealing with anxiety and panic attacks for 5-10 years and ever since his mother roughly 9 months ago his symptoms have steadily worsened. He is not on any medication for his anxiety, and he has not set up with any outpatient resources. He was actually seen in the ER earlier this morning, given 0.5 mg of Ativan, given the mental health contact, and he is planning on reaching out both to his primary care provider and the mental health team tomorrow to discuss his ongoing symptoms. Patient states that approximately 1 hour ago he began having a severe anxiety attack, unsure exactly what prompted this, feeling sweaty, anxious, tingling to his bilateral hand and around his mouth, feeling shaky. Patient states that he was not having difficulty breathing but when he has a severe anxiety attack he can subjectively feel short of breath. He tells me this feels very typical of a panic attack. He denies recent illness or trauma, fever, chest pain, cough, abdominal pain, nausea, vomiting, bowel or bladder changes, pain or swelling in his calf, history of DVT or PE. He states that his symptoms are already improving but he lives far from the hospital and he is concerned that if he has another attack this evening he will not be able to control himself and will end up back here in the ER. He is questioning if we can provide him a single dose now and then a dose overnight if he needs it until he can talk with the mental health team and his primary care doctor. He also states that he is due for his gabapentin Relat ed Data Home Medications Medication Instructions Recorded Confirmed gabapentin 800 mg tablet 800 mg PO TID 12/13/20 12/03/21 methadone 40 mg soluble tablet 40 mg PO DAILY 12/13/20 12/03/21 Allergies Allergy/AdvReac Type Severity Reaction Status Date / Time No Known Drug Allergies Allergy Unverified 12/03/21 17:27 General Stated Complaint: GenMedical SILVA: 2 Review of Systems Constitutional Constitutional: Denies fever(s) and Denies headache(s) ENT Ears, Nose, Mouth, and Throat: Denies headache(s) and Denies neck pain Cardiovascular Cardiovascular: Denies chest pain Respiratory Respiratory: Denies cough Gastrointestinal Gastrointestinal: Denies abdominal pain, Denies nausea and Denies vomiting Musculoskeletal Musculoskeletal: Denies neck pain, Denies numbness and Reports tingling Integumentary/Breasts Skin/Breast: Denies rash Neurologic Neurologic: Denies headache(s), Denies numbness and Reports tingling Psychiatric Psychiatric: Reports anxiety, Denies homicidal ideation and Denies suicidal ideation PFSH All Active Problems Panic attack (Acute) Anxiety (Chronic) Polysubstance abuse (Chronic) Tobacco abuse (Chronic) Acute respiratory failure with hypoxia and hypercarbia (Acute) Decompensated COPD with exacerbation (chronic obstructive pulmonary disease) (Acute) Medical History Cerebellar cerebrovascular accident (CVA) without late effect COPD (chronic obstructive pulmonary disease) Moderate opioid dependence on maintenance therapy Social History Smoking/Tobacco Use Status: Current every day Tobacco Type: cigarettes Smoking risk assessment performed?: Yes Alcohol Intake: former Drug use: Occasionally Substance use type: former substance user, marijuana and heroin Do you feel safe at home: Yes Do you feel safe in your relationship?: Yes Exam Const General: cooperative, healthy appearing, comfortable, no acute distress and anxious Orientation: alert and awake HENMT Head: normal to inspection, normocephalic and atraumatic Face and sinus: normal facial exam Mouth: moist mucous membranes Eyes Conjunctivae: conjunctivae normal Neck Neck: normal visual inspection, full ROM, no meningeal signs, trachea midline and supple Resp Effort & Inspection: normal respiratory effort and able to speak in complete sentences Auscultation: wheezes (Scattered throughout, at baseline per patient) Cardio Rate: regular rate Rhythm: regular rhythm GI Palpation: soft and nontender Back/Spine/Pelvis Back: No back tenderness Skin General skin exam: no rashes or lesions noted Neuro General: patient alert, patient awake, moves all extremities and no focal motor deficits Cognition: normal cognition Speech: speech normal Gait: normal gait Motor: muscle tone normal throughout Sensory Exam: no sensory deficits noted Extrem General: normal to inspection, full ROM, capillary refill normal, no pedal edema and no calf tenderness Psych Appearance: grossly normal Mental Status: mental status grossly normal Course Vital Signs Vital signs: Vital Signs Temperature 36.2 C L 12/03/21 17:22 Pulse 65 12/03/21 17:22 Respiratory Rate 22 12/03/21 17:22 Blood Pressure 159/95 H 12/03/21 17:22 Pulse Oximetry 100 12/03/21 17:22 Temperature 36.2 C L 12/03/21 17:22 Temperature Source Temporal Artery Scan 12/03/21 17:22 Pulse 65 12/03/21 17:22 Respiratory Rate 22 12/03/21 17:29 Respiratory Effort 12/03/21 17:26 Respiratory Depth Normal 12/03/21 17:29 Respiratory Pattern Normal 12/03/21 17:29 Blood Pressure 159/95 H 12/03/21 17:22 Blood Pressure Position Supine 12/03/21 17:22 Pulse Oximetry 100 12/03/21 17:22 Oxygen Delivery Method Room Air 12/03/21 17:22 Oxygen Flow Rate 0 12/03/21 17:22 Pain Level 0 12/03/21 17:22
[2021-12-03] MEDS: LORazepam 1 MG TAB PO ×2 (17:53→18:52)
[2021-12-03] MEDS: Gabapentin 400 MG CAP 800 MG PO (18:52)
[2021-12-03 18:55] VITALS: BP 155/99; PULSE 67; RESP 22; TEMP 37; O2SAT 99
== END 2021-12-03 19:07 | disposition home or self-care (01) ==
PROVIDERS: Emergency Provider Physician Assistant
DX: F41.0 Panic disorder [episodic paroxysmal anxiety] (principal); R06.02 Shortness of breath
CPT/HCPCS: 93005; 99283; 93010

== ENCOUNTER 2021-12-07 01:21 | Emergency (ER) | payer MEDICAID, SELFPAY ==
[2021-12-07 01:22] VITALS: BP 178/78; PULSE 55; RESP 18; TEMP 36.8; O2SAT 94
[2021-12-07 01:25] VITALS: RESP 18
--- NOTE | 2021-12-07 01:30 | ED.GENADUL_ITS ---
Discharge Plan Disposition Patient Disposition: HOME Condition: Stable Discharge Details Clinical Impression: Panic attack, Anxiety Primary Care Provider: Nicholas Wilcox ED Provider: Bishop Swain Home Meds and New Rx's Prescriptions: Continued methadone 40 mg Tablet,Soluble 40 mg PO DAILY 0RF gabapentin 800 mg Tablet 800 mg PO TID 0RF propranolol 40 mg Tablet 40 mg PO DAILY 0RF buspirone 7.5 mg Tablet 7.5 mg PO DAILY 0RF Discharge Instructions Instructions: Panic Attack (ED) Additional Instructions: only take the ativan as needed for a panic attack and only take 1 every 6 hours, do not use alcohol or drugs with this medicine follow up with your primary care provider within 1 week if you feel more ill or have severe worsening symptoms return to the emergency department Medical Decision Making 46 yo male with hx of anxiety, chronic smoker with copd who comes in with ems with complaints of a panic attack. He has a long standing issue with anxiety and states it has worsened due to this mother and a friend dying recently. HE has been seen in the ED twice this week for anxiety/panic attacks, and improved with ativan. He saw his pcp for the first time yesterday per patient and was started on propranolol and buspar and states he has had one dose of that. He states he also has multiple lower teeth removed by the dentist yesterday as well and that increased his stress, and tonight was unable to sleep, started to feel his anxiety symptoms of nausea, heart fluttering and diaphoresis so came here. He arrives appearing anxious though is caox4 with clear speech, normal gait, no f ocal motor or sensation deficits. He does have multiple lower teeth that have evidence of recent bleeding indicating a recent dental procedure to remove the teeth. He denies drug use other than occasional marijuana, does admit to using cocaine but hasn't in weeks per the patient. Denies alcohol use as well. Discussed with the patient this is most likely his anxiety and a panic attack but would like to obtain medical tests to rule out thyroid disease and though feel this is less likely evaluate for acs and pe. He has capacity to make his own decisions and states he has had workups before and knows this is his anxiety and declines any medical workup and just wants to try ativan and understands risks of missing potential etiologies stated above including and permanent disability and is willing to accept these risks. Will treat with a dose of ativan and reassess. HE feels much better within 10 minutes of receiving the ativan and requesting d/c. Will provide him with home ativan prn 3 tablets and advised to discuss having short supplies prescribed by his pcp to use as needed. Return precautions given Differential Diagnosis Differential Diagnosis: anxiety, panic attack Medical Records Medical records reviewed: Yes I reviewed the patient's medical records. HPI General Mode of arrival: EMS . Date/Time Provider Initiated Documentation: 12/07/21 01:24 . Limitations to Documentation: no limitations . Information obtained by: patient . History of Present Illness 46 year old M presents to the emergency department with the chief complaint of anxiety, described as moderate, Patient started experiencing this hour(s) (1) and it has been constant. improves with No relieving factors improve symptom(s), No exacerbating factors reported . Patient did receive the following treatments prior to arrival, none Related Data Home Medications Medication Instructions Recorded Confirmed gabapentin 800 mg tablet 800 mg PO TID 12/13/20 12/07/21 methadone 40 mg soluble tablet 40 mg PO DAILY 12/13/20 12/07/21 buspirone 7.5 mg tablet 7.5 mg PO DAILY 12/07/21 12/07/21 propranolol 40 mg tablet 40 mg PO DAILY 12/07/21 12/07/21 Allergies Allergy/AdvReac Type Severity Reaction Status Date / Time No Known Drug Allergies Allergy Unverified 12/07/21 01:24 General Stated Complaint: Anxiety SILVA: 4 Review of Systems All systems reviewed & are unremarkable except as noted in HPI and below Constitutional Constitutional: Denies chills, Denies fever(s) and Denies weakness Eyes Eyes: Denies loss of vision ENT Ears, Nose, Mouth, and Throat: Denies change in voice Cardiovascular Cardiovascular: Denies chest pain and Denies dyspnea Respiratory Respiratory: Denies cough and Denies dyspnea Gastrointestinal Gastrointestinal: Denies abdominal pain and Denies vomiting Musculoskeletal Musculoskeletal: Denies joint swelling Neurologic Neurologic: Denies loss of vision and Denies weakness Psychiatric Psychiatric: Denies depression PFSH All Active Problems (Updated 12/07/21 @ 01:45 by Bishop Swain MD) Panic attack (Acute) Anxiety (Chronic) Polysubstance abuse (Chronic) Tobacco abuse (Chronic) Acute respiratory failure with hypoxia and hypercarbia (Acute) Decompensated COPD with exacerbation (chronic obstructive pulmonary disease) (Acute) Medical History Cerebellar cerebrovascular accident (CVA) without late effect COPD (chronic obstructive pulmonary disease) Moderate opioid dependence on maintenance therapy Social History Smoking/Tobacco Use Status: Current every day Tobacco Type: cigarettes Smoking risk assessment performed?: Yes Alcohol Intake: former Drug use: Occasionally Substance use type: former substance user, marijuana and heroin Do you feel safe at home: Yes Do you feel safe in your relationship?: Yes Exam Const General: no acute distress Orientation: alert HENMT Head: normal to inspection Ears: external ears normal General nose exam: external nose normal Mouth: moist mucous membranes Eyes General: appearance normal, both eyes and all related structures Neck Neck: normal visual inspection Resp Effort & Inspection: normal respiratory effort and able to speak in complete sentences Cardio Rate: regular rate Skin General skin exam: no rashes or lesions noted Neuro General: patient alert and patient oriented x3 Extrem General: normal to inspection Psych Mental Status: mental status grossly normal Speech and Movement: speech not slurred Mood: anxious mood Affect: normal affect Attitude: cooperative Thought Process: normal Thought Content: normal Course Vital Signs Vital signs: Vital Signs Temperature 36.8 C 12/07/21 01:22 Pulse 55 L 12/07/21 01:22 Respiratory Rate 18 12/07/21 01:22 Blood Pressure 178/78 H 12/07/21 01:22 Pulse Oximetry 94 12/07/21 01:22 Temperature 36.8 C 12/07/21 01:22 Temperature Source Temporal Artery Scan 12/07/21 01:22 Pulse 55 L 12/07/21 01:22 Respiratory Rate 18 12/07/21 01:22 Blood Pressure 178/78 H 12/07/21 01:22 Pulse Oximetry 94 12/07/21 01:22 Oxygen Delivery Method Room Air 12/07/21 01:22 Oxygen Flow Rate 0 12/07/21 01:22 Pain Level 0 12/07/21 01:22
[2021-12-07] MEDS: LORazepam 1 MG TAB PO (01:41)
[2021-12-07] MEDS: LORazepam 1 MG TAB 3 MG PO (01:50)
[2021-12-07 01:52] VITALS: BP 178/78; PULSE 55; RESP 18; TEMP 36.8; O2SAT 94
== END 2021-12-07 01:54 | disposition home or self-care (01) ==
PROVIDERS: Emergency Provider Emergency Medicine; PCP Physician Assistant
DX: F41.0 Panic disorder [episodic paroxysmal anxiety] (principal); F41.9 Anxiety disorder, unspecified
CPT/HCPCS: 99283

== ENCOUNTER 2021-12-21 03:43 | Emergency (ER) | payer MEDICAID, SELFPAY ==
[2021-12-21 03:41] VITALS: BP 160/85; PULSE 74; RESP 18; TEMP 36.6; O2SAT 93
[2021-12-21 03:45] VITALS: RESP 18
--- NOTE | 2021-12-21 03:46 | ED.GENADUL_ITS ---
Discharge Plan Disposition Patient Disposition: HOME Condition: Improving Discharge Details Clinical Impression: Panic attack, Anxiety Primary Care Provider: Nciholas Wilcox ED Provider: Gurdeep Rogers Home Meds and New Rx's Prescriptions: New lorazepam [Ativan] 0.5 mg tablet 0.5 mg PO DAILY PRNQty: 5 0RF Continued methadone 40 mg Tablet,Soluble 40 mg PO DAILY 0RF gabapentin 800 mg Tablet 800 mg PO TID 0RF propranolol 40 mg Tablet 40 mg PO DAILY 0RF buspirone 7.5 mg Tablet 7.5 mg PO DAILY 0RF Discharge Instructions Instructions: Anxiety (ED), Panic Attack (ED) Additional Instructions: Please follow-up with mental health on Saturday as planned. May use the provided Ativan by prescription as needed for severe or persistent anxiety at home. Continue your routine medications. Return to the ER for any acute concerns. Medical Decision Making 46-year-old male presents from home via EMS with panic/anxiety attack at home this evening. He is slightly hypertensive and anxious.. He has failed attempted relaxation technique at home. He has plans for follow-up to establish care with mental health this coming Saturday. Patient given 1 mg of Ativan with good effect. I have prescribed him 0.5 mg of Ativan for as needed use at home. He understands he is to follow-up with psychiatry/crisis/mental health as planned. HPI General Mode of arrival: EMS . Date/Time Provider Initiated Documentation: 12/21/21 03:46 . Limitations to Documentation: no limitations . Information obtained by: patient and EMS . History of Present Illness 46 year old M presents to the emergency department with the chief complaint of Anxiety, worse since the of his mother, described as moderate, Quality is described as constant, and is localized to the head. Patient reports no radiation. Patient started experiencing this hour(s) and it has been constant. improves with No relieving factors improve symptom(s), No ex acerbating factors reported . Patient notes denies chest pain, shortness of breath and syncope. Patient did receive the following treatments prior to arrival, none Related Data Home Medications Medication Instructions Recorded Confirmed gabapentin 800 mg tablet 800 mg PO TID 12/13/20 12/07/21 methadone 40 mg soluble tablet 40 mg PO DAILY 12/13/20 12/07/21 buspirone 7.5 mg tablet 7.5 mg PO DAILY 12/07/21 12/07/21 propranolol 40 mg tablet 40 mg PO DAILY 12/07/21 12/07/21 lorazepam 0.5 mg tablet (Ativan) 0.5 mg PO DAILY PRN #5 tab 12/21/21 Previous Rx's Medication Instructions Recorded lorazepam 0.5 mg tablet (Ativan) 0.5 mg PO DAILY PRN #5 tab 12/21/21 Allergies Allergy/AdvReac Type Severity Reaction Status Date / Time No Known Drug Allergies Allergy Unverified 12/07/21 01:24 General Stated Complaint: Anxiety SILVA: 4 Review of Systems Narrative: No thoughts of harming himself or others. Medically has been well. Systems were reviewed and otherwise negative PFSH All Active Problems (Updated 12/21/21 @ 03:58 by Gurdeep Rogers MD) Panic attack (Acute) Anxiety (Chronic) Polysubstance abuse (Chronic) Tobacco abuse (Chronic) Acute respiratory failure with hypoxia and hypercarbia (Acute) Decompensated COPD with exacerbation (chronic obstructive pulmonary disease) (Acute) Medical History Cerebellar cerebrovascular accident (CVA) without late effect COPD (chronic obstructive pulmonary disease) Moderate opioid dependence on maintenance therapy Social History Smoking/Tobacco Use Status: Current every day Tobacco Type: cigarettes Smoking risk assessment performed?: Yes Alcohol Intake: former Drug use: Occasionally Substance use type: former substance user, marijuana and heroin Do you feel safe at home: Yes Do you feel safe in your relationship?: Yes Exam Narrative Exam Narrative: GEN: awake, alert, oriented 3. Pleasant, well groomed, interactive. HEAD: Normocephalic, atraumatic ENT: Mucous membranes moist, oropharynx unremarkable, External ear exam unremarkable EYES: PERRL, EOMI NECK: Full ROM, no MARGOT, no menigismus CHEST/RESP: Nontender, clear to auscultation bilateral, no wheeze/rhonchi/rales CARDIOVASCULAR: RRR, no murmur, rub lupillo. 2+ Rad pulse bilateral ABDOMEN: Soft, nontender, no mass. +Bowel sounds EXT: Full ROM, no edema, no rash Neuro: Grossly normal neurologic exam, conversant, interactive. Psych: Speech fluent, thoughts congruent, affect anxious Course Vital Signs Vital signs: Vital Signs Temperature 36.6 C 12/21/21 03:41 Pulse 74 12/21/21 03:41 Respiratory Rate 18 12/21/21 03:41 Blood Pressure 160/85 H 12/21/21 03:41 Pulse Oximetry 93 12/21/21 03:41 Temperature 36.6 C 12/21/21 03:41 Temperature Source Skin 12/21/21 03:41 Pulse 74 12/21/21 03:41 Respiratory Rate 18 12/21/21 03:41 Blood Pressure 160/85 H 12/21/21 03:41 Blood Pressure Position Sitting 12/21/21 03:41 Pulse Oximetry 93 12/21/21 03:41 Oxygen Delivery Method Room Air 12/21/21 03:41 Oxygen Flow Rate 0 12/21/21 03:41
[2021-12-21] MEDS: LORazepam 1 MG TAB PO (04:04)
[2021-12-21 04:13] VITALS: BP 160/85; PULSE 74; RESP 18; TEMP 36.6; O2SAT 93
== END 2021-12-21 04:13 | disposition home or self-care (01) ==
LOC: ER 04:13
PROVIDERS: Emergency Provider Emergency Medicine; PCP Physician Assistant
DX: F41.0 Panic disorder [episodic paroxysmal anxiety] (principal); I10 Essential (primary) hypertension
CPT/HCPCS: 99283

== ENCOUNTER 2022-03-02 07:00 | Emergency (ER) | payer MEDICAID, SELFPAY ==
[2022-03-02] VITALS (20 sets, daily range): BP systolic 85–109; BP diastolic 35–69; PULSE 47–59; RESP 8–18; TEMP 36.5–36.7; O2SAT 88–100
--- NOTE | 2022-03-02 07:00 | RT.EKG_ITS ---
APPROVED REPORT Exam: Resting ECG Reason for Exam: overdose Patient Location: E HR:52 bpm ECG Measurements Heart Rate [address] 149 P 31 QRSd 112 QRS -8 QT 456 T 60 QTc 426 Conclusion Sinus bradycardia...rate< 60 ST elev, probable normal early repol pattern...ST elevation, age<55
[2022-03-02] MEDS: Normal Saline 1,000 ML 1000 ML IV (07:30)
--- NOTE | 2022-03-02 07:38 | W.ED.GENAD ---
Discharge Plan Disposition Patient Disposition: HOME Condition: Stable Discharge Details Clinical Impression: Alertness, decreased Primary Care Provider: Nicholas Wilcox ED Provider: Bishop Swain Home Meds and New Rx's Prescriptions: Continued methadone 40 mg Tablet,Soluble 155 mg PO DAILY gabapentin 800 mg Tablet 800 mg PO TID propranolol 40 mg Tablet 40 mg PO DAILY buspirone 7.5 mg Tablet 7.5 mg PO DAILY lorazepam [Ativan] 0.5 mg tablet 0.5 mg PO DAILY PRNQty: 5 0RF Discharge Instructions Additional Instructions: discuss with your provider if your dose of methadone should be decreased if you feel more ill, have difficulty breathing or fevers return to the emergency department follow up with your primary care provider within 1-2 weeks Medical Decision Making 46 yo male with hx of substance abuse on methadone (150mg per [facility] and has not had a dose change recently and did get his dose this morning), comes in with ems with lethargy. He got his dose this morning and was at a local gas station with a friend and was sleepy and not acting himself and so she called ems. HE arrives stable, is sleeping when I enter the room but awakens to voice, is caox4 and not sure why he is here. He does fall asleep frequently and has trouble staying awake when talking to him, denies any drug use or other substances. HE has no focal motor or sensation deficits. His presentation is consistent with sedative overdose, potential for opiate overdose, given he is protecting his airway will hold on narcan at this time. Will check for electrolyte abnormalities and evaluate for toxic ingestants. He denies si/hi. He is 88% on room air which is likely his baseline from his copd and being sedated, has no wheezing to suggest copd exacerbation pt stable, labs unremarkable. HE is now more alert and requesting to eat, will have nursing ambulate him after eating and if he does well likely d/c with pcp follow up pt ambulating by himself and has no complaints, oxygen 94% on room air and caox4. STable for d/c, advised to f/u with pcp and discuss decreasing his methadone dose with [facility] providers. Return precautions given Differential Diagnosis Differential Diagnosis: medication reaction, overdose Medical Records Medical records reviewed: Yes I reviewed the patient's medical records. Lab Data Lab results reviewed: Yes I reviewed the patient's lab results. ECG Data Attestation: I personally reviewed and interpreted this ECG (s) as follows: Prior ECG tracings: available for review Interpretation: sinus bradycardia, rate of 50, repol no stemi HPI General Mode of arrival: EMS. Date/Time Provider Initiated Documentation: 03/02/22 07:30. Information obtained by: patient. History of Present Illness 46 year old M presents to the emergency department with the chief complaint of lethargic, described as moderate, Patient started experiencing this hour(s) (1) and it has been constant. No relieving factors improve symptom(s), No exacerbating factors reported . Patient notes no other symptoms.. Patient did receive the following treatments prior to arrival, none Related Data Home Medications Medication Instructions Recorded Confirmed gabapentin 800 mg tablet 800 mg PO TID 12/13/20 03/02/22 methadone 40 mg soluble tablet 155 mg PO DAILY 12/13/20 03/02/22 buspirone 7.5 mg tablet 7.5 mg PO DAILY 12/07/21 03/02/22 propranolol 40 mg tablet 40 mg PO DAILY 12/07/21 03/02/22 lorazepam 0.5 mg tablet (Ativan) 0.5 mg PO DAILY PRN #5 tabs 12/21/21 03/02/22 Previous Rx's Medication Instructions Recorded lorazepam 0.5 mg tablet (Ativan) 0.5 mg PO DAILY PRN #5 tabs 12/21/21 Allergies Allergy/AdvReac Type Severity Reaction Status Date / Time No Known Drug Allergies Allergy Unverified 03/02/22 07:12 General Stated Complaint: OD/Poison SILVA: 2 Review of Systems All systems reviewed & are unremarkable except as noted in HPI and below Constitutional Constitutional: Denies chills and Denies fever(s) ENT Ears, Nose, Mouth, and Throat: Denies change in voice Cardiovascular Cardiovascular: Denies chest pain and Denies dyspnea Respiratory Respiratory: Denies cough and Denies dyspnea Gastrointestinal Gastrointestinal: Denies abdominal pain, Denies nausea and Denies vomiting Genitourinary Genitourinary: Denies dysuria Musculoskeletal Musculoskeletal: Denies joint swelling Integumentary/Breasts Skin/Breast: Denies rash PFSH All Active Problems (Updated 03/02/22 @ 09:06 by Bishop Swain MD) Alertness, decreased (Acute) Anxiety (Chronic) Polysubstance abuse (Chronic) Tobacco abuse (Chronic) Acute respiratory failure with hypoxia and hypercarbia (Acute) Decompensated COPD with exacerbation (chronic obstructive pulmonary disease) (Acute) Medical History Cerebellar cerebrovascular accident (CVA) without late effect COPD (chronic obstructive pulmonary disease) Moderate opioid dependence on maintenance therapy Social History Smoking/Tobacco Use Status: Current every day Tobacco Type: cigarettes Smoking risk assessment performed?: Yes Alcohol Intake: former Drug use: Occasionally Substance use type: former substance user, marijuana and heroin Do you feel safe at home: Yes Do you feel safe in your relationship?: Yes Exam Const General: no acute distress and other (sleeping but awakens to voice) HENMT Head: normal to inspection Ears: external ears normal General nose exam: external nose normal Mouth: moist mucous membranes Eyes General: appearance normal, both eyes and all related structures Neck Neck: normal visual inspection Resp Effort & Inspection: normal respiratory effort and able to speak in complete sentences Cardio Rate: regular rate Skin General skin exam: no rashes or lesions noted Neuro General: patient oriented x3 Extrem General: normal to inspection Psych Mental Status: mental status grossly normal Course Vital Signs Vital signs: Vital Signs Temperature 36.5 C 03/02/22 07:03 Pulse 51 L 03/02/22 07:03 Respiratory Rate 11 L 03/02/22 07:03 Blood Pressure 109/69 03/02/22 07:03 Pulse Oximetry 88 L 03/02/22 07:03 Temperature 36.5 C 03/02/22 07:03 Temperature Source Temporal Artery Scan 03/02/22 07:03 Pulse 51 L 03/02/22 07:03 Respiratory Rate 11 L 03/02/22 07:03 Respiratory Effort 03/02/22 07:03 Blood Pressure 109/69 03/02/22 07:03 Blood Pressure Position Sitting 03/02/22 07:03 Pulse Oximetry 94 03/02/22 07:15 Oxygen Delivery Method Nasal Cannula 03/02/22 07:15 Oxygen Flow Rate 2 03/02/22 07:15 Pain Level 0 03/02/22 07:03
[2022-03-02 07:48] LABS: Abs Immature Grans 0.09 10^3/uL (0.0-0.06); Absolute Basophil Count 0.03 10^3/uL (0.0-0.2); Absolute Eosinophil Count 0.22 10^3/uL (0.0-0.7); Absolute Lymphocyte Count 2.63 10^3/uL (1.2-3.4); Absolute Monocyte Count 1.07 10^3/uL (0.1-0.8); Absolute Neutrophil Count 5.17 10^3/uL (1.2-6.7); Basophils % 0.3; Eosinophils % 2.4; HCT 38.8 % (40.0-50.0); HGB 12.2 g/dL (13.5-17.5); Lymphocytes % 28.6; MCH 29.6 pg (27.0-33.0); MCHC 31.4 % (32.0-36.0); MCV 94 fL (80-95); MPV 10.5 fL (8.0-11.0); Monocytes % 11.6; Neutrophils % 56.1; Platelet Count 285 10^3/uL (130-400); RBC 4.12 10^6/uL (4.36-5.78); RDW 13.3 % (11.8-14.1); RDW-SD 45.6 fL; WBC 9.21 10^3/uL (4.4-10.8)
[2022-03-02 08:15] LABS: ALT 16 U/L (16-63); AST 20 U/L (15-37); Albumin 2.9 g/dL (3.4-5.0); Alkaline Phosphatase 87 U/L (46-116); Anion Gap 2.8 mmol/L (3-11); BUN 11 mg/dL (7-18); Bilirubin, Total 0.3 mg/dL (0.2-1.0); CO2 37.2 mmol/L (21.0-32.0); CREATININE 0.7 mg/dL (0.70-1.30); Calcium 8.6 mg/dL (8.5-10.1); Chloride 100 mmol/L (98-107); Glucose 89 mg/dL (74-106); Magnesium 2.3 mg/dL (1.8-2.4); Potassium 4.4 mmol/L (3.5-5.1); Sodium 140 mmol/L (136-145); Total Protein 7.3 g/dL (6.4-8.2)
[2022-03-02 08:18] LABS: ETHANOL BLOOD < 3.0 mg/dL (<10)
[2022-03-02 08:33] LABS: Salicylate < 2.8 mg/dL (<2.8)
[2022-03-02 08:39] LABS: Acetaminophen < 2 ug/mL (10-30)
[2022-03-02 09:36] LABS: *AMPHETAMINES SCREEN URINE Negative (Negative); *BARBITURATES SCREEN URINE Negative (Negative); *BENZODIAZEPINES SCREEN URINE Negative (Negative); Cannabinoids THC Positive (Negative); Cocaine Screen,Urine Negative (Negative); METHADONE URINE SCREEN Positive (Negative); OPIATES URINE SCREEN Negative (Negative); Tricyclic Antidepressants Positive (Negative)
== END 2022-03-02 09:17 | disposition home or self-care (01) ==
PROVIDERS: Emergency Provider Emergency Medicine; PCP Physician Assistant
DX: R40.0 Somnolence (principal); F11.20 Opioid dependence, uncomplicated; R53.83 Other fatigue; T40.3X1A Poisoning by methadone, accidental (unintentional), initial encounter
CPT/HCPCS: 80053; 80307; 93005; 96360; 99284; 80320; 80329; 83735; 85025; 93010; 99283

== ENCOUNTER 2022-04-06 23:34 | Emergency (ER) | payer MEDICAID, SELFPAY ==
[2022-04-06 23:37] VITALS: BP 136/56; PULSE 59; RESP 16; TEMP 36.7; O2SAT 100
--- NOTE | 2022-04-07 00:15 | ED.GENADUL_ITS ---
Discharge Plan Disposition Patient Disposition: HOME Condition: Stable Discharge Details Clinical Impression: Asthma Primary Care Provider: Nicholas Wilcox ED Provider: Bishop Swain Home Meds and New Rx's Prescriptions: New prednisone 20 mg tablet 60 mg PO DAILY 4 Days Qty: 12 0RF Continued methadone 40 mg Tablet,Soluble 155 mg PO DAILY gabapentin 800 mg Tablet 800 mg PO TID propranolol 40 mg Tablet 40 mg PO DAILY buspirone 7.5 mg Tablet 7.5 mg PO DAILY lorazepam [Ativan] 0.5 mg tablet 0.5 mg PO DAILY PRNQty: 5 0RF albuterol sulfate [ProAir HFA] 90 mcg/actuation HFA aerosol inhaler 2 inh INHALATION PRN PRN Label Comments: INHALE 1-2 PUFFS USING INHALER EVERY FOUR TO SIX HOURS Discharge Instructions Instructions: Asthma (ED) Additional Instructions: Follow up with your primary care provider within 1 week if you feel more ill, have worsening symptoms or fevers return to the emergency department Medical Decision Making 47 yo male with prior history of substance abuse on methadone and denies recent illicit drug use, asthma/copd, who comes in with ems with complaints of shortness of breath and an asthma attack. He states he has felt mildly short of breath today and tonight while with officers suddenly felt more short of breath so ems was called. HE was given a nebulizer with them and now feels improved. He denies chest pain, fevers, chills, cough. He is speaking in full sentences in no distress. He does have apical wheezing other rodriguez clear lungs. No calf tenderness or leg swelling and he has no tachycardia or hypoxia. Suspect astma vs copd exacerbation and possible anxiety. Wells low and perc negative. No chest pain or discomfort and felt better after nebulizers so doubt acs. Will gve another neb and prednisone and reassess. pt's lungs now clear and he feels better, stable for d/c and advised to f/u with pcp in a week and return precautions given. He did request tylenol that he states he takes sometimes for chronic leg pain, has full rom and has been walking throughout the department without a limp and has no swelling so do not feel acute workup of his pain is warranted at this time Differential Diagnosis Differential Diagnosis: asthma, copd, anxiety HPI General Mode of arrival: EMS . Date/Time Provider Initiated Documentation: 04/06/22 23:51 . Limitations to Documentation: no limitations . Information obtained by: patient . History of Present Illness 47 year old M presents to the emergency department with the chief complaint of shortness of breath, described as mild, Patient started experiencing this day(s) (1) and it has been constant. No relieving factors improve symptom(s), No exacerbating factors reported . Patient notes no other symptoms.. Patient did receive the following treatments prior to arrival, none Related Data Home Medications Medication Instructions Recorded Confirmed gabapentin 800 mg tablet 800 mg PO TID 12/13/20 03/02/22 methadone 40 mg soluble tablet 155 mg PO DAILY 12/13/20 03/02/22 buspirone 7.5 mg tablet 7.5 mg PO DAILY 12/07/21 03/02/22 propranolol 40 mg tablet 40 mg PO DAILY 12/07/21 03/02/22 lorazepam 0.5 mg tablet (Ativan) 0.5 mg PO DAILY PRN #5 tabs 12/21/21 03/02/22 albuterol sulfate 90 mcg/actuation 2 inh inhalation PRN PRN 04/06/22 04/06/22 aerosol inhaler (ProAir HFA) prednisone 20 mg tablet 60 mg PO DAILY 4 days #12 tabs 04/07/22 Previous Rx's Medication Instructions Recorded lorazepam 0.5 mg tablet (Ativan) 0.5 mg PO DAILY PRN #5 tabs 12/21/21 prednisone 20 mg tablet 60 mg PO DAILY 4 days #12 tabs 04/07/22 Allergies Allergy/AdvReac Type Severity Reaction Status Date / Time No Known Drug Allergies Allergy Unverified 04/06/22 23:39 General Stated Complaint: RespSymp SILVA: 4 Review of Systems All systems reviewed & are unremarkable except as noted in HPI and below Constitutional Constitutional: Denies chills, Denies fever(s) and Denies weakness Cardiovascular Cardiovascular: Denies chest pain Respiratory Respiratory: Denies cough Gastrointestinal Gastrointestinal: Denies abdominal pain, Denies nausea and Denies vomiting Musculoskeletal Musculoskeletal: Denies joint swelling Integumentary/Breasts Skin/Breast: Denies rash Neurologic Neurologic: Denies weakness PFSH All Active Problems (Updated 04/07/22 @ 00:52 by Bishop Swain MD) Asthma (Chronic) Anxiety (Chronic) Polysubstance abuse (Chronic) Tobacco abuse (Chronic) Acute respiratory failure with hypoxia and hypercarbia (Acute) Decompensated COPD with exacerbation (chronic obstructive pulmonary disease) ( Acute) Medical History Cerebellar cerebrovascular accident (CVA) without late effect COPD (chronic obstructive pulmonary disease) Moderate opioid dependence on maintenance therapy Social History Smoking/Tobacco Use Status: Current every day Tobacco Type: cigarettes Smoking risk assessment performed?: Yes Alcohol Intake: current Alcohol Intake frequency: a few times a month Drug use: Occasionally Substance use type: former substance user, marijuana and heroin Do you feel safe at home: Yes Do you feel safe in your relationship?: Yes Exam Const General: no acute distress Orientation: alert HENMT Head: normal to inspection Ears: external ears normal General nose exam: external nose normal Mouth: moist mucous membranes Eyes General: appearance normal, both eyes and all related structures Neck Neck: normal visual inspection Resp Effort & Inspection: normal respiratory effort and able to speak in complete sentences Cardio Rate: regular rate Neuro General: patient alert and patient oriented x3 Extrem General: normal to inspection Psych Mental Status: mental status grossly normal Course Vital Signs Vital signs: Vital Signs Temperature 36.7 C 04/06/22 23:37 Pulse 59 L 04/06/22 23:37 Respiratory Rate 16 04/06/22 23:37 Blood Pressure 136/56 L 04/06/22 23:37 Pulse Oximetry 100 04/06/22 23:37 Temperature 36.7 C 04/06/22 23:37 Temperature Source Skin 04/06/22 23:37 Pulse 59 L 04/06/22 23:37 Respiratory Rate 16 04/06/22 23:37 Respiratory Effort Non-Labored 04/06/22 23:40 Blood Pressure 136/56 L 04/06/22 23:37 Pulse Oximetry 100 04/06/22 23:37 Pain Level 9 04/06/22 23:37 PAWSS Have you Been Recently Intoxicated or Drunk Within the Last 30 days?: Yes Have you Ever Experienced Previous Episodes of Alcohol Withdrawal?: No Have you ever Experienced Withdrawal Seizures?: No Have you ever Experienced Delirium Tremens(DT)s?: No Have you ever undergone Alcohol Rehabilitation Treatment (i.e, inpt ot outpatient treatment programs)?: Yes Have you ever Experienced Blackouts?: No Have you ever Combined Alcohol with other Downers within the last 90 days?: Yes Have you ever Combined Alcohol with any other Substance of Abuse during the last 90 days?: Yes Positive Blood Alcohol level on Presentation? [PCS.BAL]: No Evidence of Increased Autonomic Activity (i.e. HR>120, tremor, sweating, agitation, nausea)?: No Result: 4
[2022-04-07 00:33] VITALS: RESP 4
[2022-04-07] MEDS: Albuterol/Ipratropium 3 ML UPD VIAL UPD (00:33)
[2022-04-07] MEDS: predniSONE 20 MG TAB 60 MG PO (00:33)
[2022-04-07] MEDS: Albuterol HFA 8 GM 60 PUFF INH IH (00:58)
[2022-04-07] MEDS: Acetaminophen 500 MG TAB 1000 MG PO (00:58)
[2022-04-07] MEDS: Inhaler, Assist Device 1 EACH MC (01:00)
== END 2022-04-07 00:59 | disposition home or self-care (01) ==
PROVIDERS: Emergency Provider Emergency Medicine; PCP Physician Assistant
DX: J45.909 Unspecified asthma, uncomplicated (principal)
CPT/HCPCS: 94640; 99283; J7512; J7620

== ENCOUNTER 2022-04-28 11:52 | Emergency (ER) | payer MEDICAID, SELFPAY ==
[2022-04-28 11:52] VITALS: BP 144/55; PULSE 67; RESP 18; TEMP 36.6; O2SAT 90
--- NOTE | 2022-04-28 12:31 | W.ED.GENAD ---
Discharge Plan Disposition Patient Disposition: HOME Condition: Improving Discharge Details Chief Complaint: AMS/LOC Clinical Impression: Altered mental state Primary Care Provider: Nicholas Wilcox ED Provider: Arun Shanks Home Meds and New Rx's Prescriptions: No Action methadone 40 mg Tablet,Soluble 155 mg PO DAILY gabapentin 800 mg Tablet 800 mg PO TID propranolol 40 mg Tablet 40 mg PO DAILY buspirone 7.5 mg Tablet 7.5 mg PO DAILY lorazepam [Ativan] 0.5 mg tablet 0.5 mg PO DAILY PRNQty: 5 0RF albuterol sulfate [ProAir HFA] 90 mcg/actuation HFA aerosol inhaler 2 inh INHALATION PRN PRN Label Comments: INHALE 1-2 PUFFS USING INHALER EVERY FOUR TO SIX HOURS Discharge Instructions Instructions: Altered Mental Status (ED) Additional Instructions: Please follow-up with your primary care physician. Please return to the emergency department you have any worsening symptoms. Medical Decision Making 47-year-old male history of substance abuse, COPD, and brought in by EMS for evaluation of altered mental status, poor historian, somnolent intermittently dozing off during history and physical, hemodynamically stable however intermittently desaturating consider likely related to decreased respiratory effort in the setting of AMS, when aroused patient is saturating 95% on room air, will intermittently desaturate to the 80s, bradypnea shallow breathing, however lungs are largely clear, no peripheral edema, patient denies any current complaints, small pupils however equal bilaterally, exotropia of left eye unknown if this is chronic or not, no external signs of trauma. Consider substance abuse such as opioid overdose versus alcohol intoxication versus recent stimulant use with burnout versus must consider metabolic process patient was found to be hyperglycemic versus intracranial hemorrhage edema or mass, lower suspicion for infectious process, less likely primary cardiac process must also consider CO2 narcosis in setting of COPD. Will obtain labs and imaging fluids [facility]s trial of Narcan disposition pending reassessment of mental status and results 13: 18 concerned the patient might of been attempting to use drugs in the restroom, currently patient is alert and oriented ambulatory no respiratory distress satting 93% on room air improved respiratory effort since arrival. Patient does not wish to be here. Denies any injury denies any medical complaints at this time. Is using the phone to make a call to have someone pick him up. I believe patient's initial presentation was largely related to drug use in the field. Currently is clinically sober in no acute distress. I believe attempting to have patient stay for labs and imaging will cause him to escalate and risk for safety of himself and the department. For this reason I will allow him to leave. HPI General Date/Time Provider Initiated Documentation: 04/28/22 11:53. HPI Narrative: 47-year-old male history of polysubstance abuse, COPD brought in by EMS for evaluation of altered mental status, was called for welfare check, patient found to be altered initial suspicion was substance abuse. Fingerstick was not performed in the field. Patient poor historian intermittently dozing off during history and physical denies any current complaints at this time. Related Data Home Medications Medication Instructions Recorded Confirmed gabapentin 800 mg tablet 800 mg PO TID 12/13/20 03/02/22 methadone 40 mg soluble tablet 155 mg PO DAILY 12/13/20 03/02/22 buspirone 7.5 mg tablet 7.5 mg PO DAILY 12/07/21 03/02/22 propranolol 40 mg tablet 40 mg PO DAILY 12/07/21 03/02/22 lorazepam 0.5 mg tablet (Ativan) 0.5 mg PO DAILY PRN #5 tabs 12/21/21 03/02/22 albuterol sulfate 90 mcg/actuation 2 inh inhalation PRN PRN 04/06/22 04/06/22 aerosol inhaler (ProAir HFA) Previous Rx's Medication Instructions Recorded lorazepam 0.5 mg tablet (Ativan) 0.5 mg PO DAILY PRN #5 tabs 12/21/21 Allergies Allergy/AdvReac Type Severity Reaction Status Date / Time No Known Drug Allergies Allergy Unverified 04/06/22 23:39 General SILVA: 4 Review of Systems Narrative: Review of Systems Constitutional: negative Eyes: negative ENT: negative Cardiovascular: negative Respiratory: negative Gastrointestinal: negative : negative Musculoskeletal: negative Skin: negative Neurologic: Altered mental status Psych: negative PFSH All Active Problems (Updated 04/28/22 @ 13:20 by Arun Shanks MD) Asthma (Chronic) Altered mental state (Acute) Anxiety (Chronic) Polysubstance abuse (Chronic) Tobacco abuse (Chronic) Acute respiratory failure with hypoxia and hypercarbia (Acute) Decompensated COPD with exacerbation (chronic obstructive pulmonary disease) (Acute) Medical History Cerebellar cerebrovascular accident (CVA) without late effect COPD (chronic obstructive pulmonary disease) Moderate opioid dependence on maintenance therapy Social History Smoking/Tobacco Use Status: Current every day Tobacco Type: cigarettes Smoking risk assessment performed?: Yes Alcohol Intake: current Alcohol Intake frequency: a few times a month Drug use: Occasionally Substance use type: former substance user, marijuana, heroin and amphetamines Do you feel safe at home: Yes Do you feel safe in your relationship?: Yes Exam Narrative Exam Narrative: Physical Examination General: Somnolent HEENT: normocephalic, atraumatic; PERRL on the smaller side , EOM intact, exotropia of left eye; conjunctiva normal; no nasal discharge; moist mucous membranes, oral and pharyngeal mucosa normal, tolerating secretions Neck: supple, trachea midline; full ROM Chest: normal to inspection Respiratory: Shallow respirations and bradypnea, clear lungs Cardiac: regular rate, regular rhythm, S1S2 intact, no murmurs rubs or gallops GI: abdomen soft, non-tender, non-distended; no palpable mass or hepatosplenomegaly Skin: no lesions, rashes or trauma appreciated Neuro: Alert to self, exotropia of left eye, remaining cranial nerves intact, moving all extremities with full strength Extremities: No edema or deformity Psych: Poor cooperation with history and physical
[2022-04-28] MEDS: Naloxone 0.4 MG/ML VIAL SC (12:49)
--- NOTE | 2022-04-28 12:53 | NUR.NOTE ---
Addendum entered by Marlene Farr RN 04/28/22 13:29: 1329 Patient discharged from dept ambulated with steady gait to parking lot Original Note: Nursing Note: Patient moving around constantly, insists upon sitting on the floor. Repeatedly starts to doze off and sway over. Pt redirected as needed. Security is at bedside. Per Dr. Kathleen gave narcan sq to see if any effect before drawing labs/IV as patient is impulsive and restless.
[2022-04-28 12:56] VITALS: RESP 18
[2022-04-28 13:28] VITALS: PULSE 80; RESP 20; O2SAT 95
== END 2022-04-28 13:29 | disposition home or self-care (01) ==
PROVIDERS: Emergency Provider Emergency Medicine; PCP Physician Assistant
DX: R41.82 Altered mental status, unspecified (principal); J44.9 Chronic obstructive pulmonary disease, unspecified; H50.112 Monocular exotropia, left eye; F17.210 Nicotine dependence, cigarettes, uncomplicated
CPT/HCPCS: 80053; 82805; 94640; 96361; 96374; 99284; 80320; 83880; 84443; 84484; 85025; 99285; J2310

== ENCOUNTER 2022-05-18 08:18 | Emergency (ER) | payer MEDICAID, SELFPAY ==
[2022-05-18] VITALS (25 sets, daily range): BP systolic 110–138; BP diastolic 48–92; PULSE 51–77; RESP 4–19; TEMP 36; O2SAT 84–100
--- NOTE | 2022-05-18 08:15 | RT.EKG_ITS ---
APPROVED REPORT Exam: Resting ECG Reason for Exam: dyspnea Patient Location: E HR:59 bpm ECG Measurements Heart Rate 59 AXIS SD 155 P 37 QRSd 102 QRS 3 QT 408 T 55 QTc 402 Conclusion Sinus bradycardia...rate< 60 Ventricular premature complex...V complex w/ short R-R interval. Sinus. PVCs. No STEMI. I have reviewed and interpreted ECG and agree with software generated interpretation.
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
--- NOTE | 2022-05-18 08:30 | DI.RAD_ITS ---
Exam(s) XR RIBS LT W PA LAT CHEST CLINICAL HISTORY cough, sob, L lower rib pain, r/o fx/acute disease. COMPARISON: CT CT CHEST WO from 12/13/2020 TECHNIQUE:: PA and lateral views of the chest and four views of the left ribs were performed. FINDINGS: LUNGS: Focal area of atelectasis versus scarring is seen posteriorly in the right lower lobe, superio r segment. Left lung is clear.. No pleural abnormality seen. HEART: Normal. MEDIASTINUM: Normal. BONES: There is a question of a nondisplaced fracture of the left 11th rib seen on one view. No noe tional rib fractures are seen.. No compression fractures are seen in the thoracic spine. There are mild degenerative disc changes. No bony destructive lesion is seen. IMPRESSION: 1. Question a nondisplaced fracture of the left 11th rib.. 2. Area of atelectasis or scarring seen in the posterior right lower lobe..
[2022-05-18] MEDS: predniSONE 20 MG TAB 60 MG PO (09:04)
[2022-05-18] MEDS: Albuterol/Ipratropium 3 ML UPD VIAL UPD (09:04)
[2022-05-18] MEDS: Methadone Liquid 10 MG/ML 70 MG PO (09:29)
[2022-05-18 10:04] LABS: Abs Immature Grans 0.01 10^3/uL (0.0-0.06); Absolute Basophil Count 0.02 10^3/uL (0.0-0.2); Absolute Eosinophil Count 0.05 10^3/uL (0.0-0.7); Absolute Lymphocyte Count 1.44 10^3/uL (1.2-3.4); Absolute Monocyte Count 0.39 10^3/uL (0.1-0.8); Absolute Neutrophil Count 2.21 10^3/uL (1.2-6.7); Basophils % 0.5; Eosinophils % 1.2; HCT 39.5 % (40.0-50.0); HGB 12.2 g/dL (13.5-17.5); Immature Grans % 0.2; MCH 29.6 pg (27.0-33.0); MCHC 30.9 % (32.0-36.0); MCV 96 fL (80-95); MPV 10.5 fL (8.0-11.0); Monocytes % 9.5; Neutrophils % 53.6; Platelet Count 202 10^3/uL (130-400); RBC 4.12 10^6/uL (4.36-5.78); RDW 15.4 % (11.8-14.1); RDW-SD 54.5 fL; WBC 4.12 10^3/uL (4.4-10.8)
[2022-05-18 10:22] LABS: ALT 33 U/L (16-63); AST 40 U/L (15-37); Albumin 3.6 g/dL (3.4-5.0); Alkaline Phosphatase 73 U/L (46-116); Anion Gap 2.9 mmol/L (3-11); BUN 9 mg/dL (7-18); Bilirubin, Total 0.2 mg/dL (0.2-1.0); CO2 39.1 mmol/L (21.0-32.0); CREATININE 0.8 mg/dL (0.70-1.30); Calcium 8.7 mg/dL (8.5-10.1); Chloride 96 mmol/L (98-107); Glucose 123 mg/dL (74-106); Magnesium 1.8 mg/dL (1.8-2.4); Sodium 138 mmol/L (136-145); Total Protein 7.5 g/dL (6.4-8.2); Troponin I < 50 ng/L (<or=60)
[2022-05-18] MEDS: Albuterol 2.5 MG/3 ML INH SOLN VIAL 5 MG UPD (10:36)
[2022-05-18] MEDS: oxyCODONE 5 MG TAB PO (11:11)
== END 2022-05-18 11:17 | disposition home or self-care (01) ==
PROVIDERS: Emergency Provider Physician Assistant; PCP Physician Assistant
DX: J44.1 Chronic obstructive pulmonary disease with (acute) exacerbation (principal); S22.32XA Fracture of one rib, left side, initial encounter for closed fracture; F17.210 Nicotine dependence, cigarettes, uncomplicated; Z86.73 Personal history of transient ischemic attack (TIA), and cerebral infarction without residual deficits; X58.XXXA Exposure to other specified factors, initial encounter
CPT/HCPCS: 80053; 93005; 94640; 96374; 99284; 71046; 71100; 83735; 84484; 85025; 93010; 99285; J7512; J7613; J7620

== ENCOUNTER 2022-05-26 06:38 | Emergency (ER) | payer MEDICAID, SELFPAY ==
[2022-05-26 06:41] VITALS: BP 143/76; PULSE 63; RESP 13; TEMP 36.5; O2SAT 95
[2022-05-26 06:45] VITALS: RESP 13
--- NOTE | 2022-05-26 06:54 | ED.GENADUL_ITS ---
Discharge Plan Disposition Patient Disposition: ELOPED Discharge Details Chief Complaint: SOB Clinical Impression: Shortness of breath Primary Care Provider: Nicholas Wilcox ED Provider: Bihsop Swain Home Meds and New Rx's Prescriptions: No Action methadone 40 mg Tablet,Soluble 70 mg PO DAILY gabapentin 800 mg Tablet 800 mg PO TID propranolol 40 mg Tablet 40 mg PO DAILY buspirone 7.5 mg Tablet 7.5 mg PO DAILY lorazepam [Ativan] 0.5 mg tablet 0.5 mg PO DAILY PRNQty: 5 0RF albuterol sulfate [ProAir HFA] 90 mcg/actuation HFA aerosol inhaler 2 inh INHALATION PRN PRN Label Comments: INHALE 1-2 PUFFS USING INHALER EVERY FOUR TO SIX HOURS prednisone 20 mg tablet See Rx Instructions .ROUTE .COMPLEX Qty: 18 0RF Rx Instructions: Take 3 tabs daily for 3 days, then 2 tabs daily for 3 days, then 1 tab daily for 3 days. albuterol sulfate 90 mcg/actuation HFA aerosol inhaler 2 puff inhalation Q6H PRN (Reason: shortness of breath or wheezing) Qty: 8.5 0RF divalproex [Depakote ER] 500 mg tablet extended release 24 hr 3 tab PO DAILY Label Comments: TAKE 3 TABLETS BY MOUTH ONCE A DAY Medical Decision Making 47 yo male with hx of polysubstance abuse on methadone, copd, who comes in with ems with shortness of breath and anxiety since last night. He states his mother recently passed which has caused stress in his life, denies si/hi. He denies any chest pain or fevers. He arrives stable speaking in full sentences in no distress, intermittent dry cough on exam. He is caox4, has bilateral apical wheezing, otherwise clear lung sounds, room air saturations in the low to mid 90's which appears to be his baseline. He has no jvd or leg swelling. Suspect this could be anxiety but will treat for copd exacerbation with neb and steroids. Will evaluate for acs with troponin and ecg, and screen for pe with d dimer. before I could enter orders patient reportedly left the ER. He had decision making capacity and was clinically sober at time of my evaluation so do not feel he requires call back to the ED at this time. Differential Diagnosis Differential Diagnosis: copd, pneumonia, covid, pe Medical Records Medical records reviewed: Yes I reviewed the patient's medical records. HPI General Mode of arrival: EMS . Date/Time Provider Initiated Documentation: 05/26/22 06:42 . Limitations to Documentation: no limitations . Information obtained by: patient . History of Present Illness 47 year old M presents to the emergency department with the chief complaint of shortness of breath, described as moderate, Patient started experiencing this day(s) (1) and it has been constant. No relieving factors improve symptom(s), No exacerbating factors reported . Patient notes cough and other (anxiety). Patient did receive the following treatments prior to arrival, none Related Data Home Medications Medication Instructions Recorded Confirmed gabapentin 800 mg tablet 800 mg PO TID 12/13/20 05/26/22 methadone 40 mg soluble tablet 70 mg PO DAILY 12/13/20 05/26/22 buspirone 7.5 mg tablet 7.5 mg PO DAILY 12/07/21 05/26/22 propranolol 40 mg tablet 40 mg PO DAILY 12/07/21 05/26/22 lorazepam 0.5 mg tablet (Ativan) 0.5 mg PO DAILY PRN #5 tabs 12/21/21 05/26/22 albuterol sulfate 90 mcg/actuation 2 inh inhalation PRN PRN 04/06/22 05/26/22 aerosol inhaler (ProAir HFA) albuterol sulfate 90 mcg/actuation 2 puff inhalation Q6H PRN 05/18/22 05/26/22 aerosol inhaler shortness of breath or wheezing #8.5 grams prednisone 20 mg tablet See Rx Instructions .Route 05/18/22 05/26/22 .COMPLEX #18 tabs divalproex 500 mg tablet,extended 3 tab PO DAILY 05/26/22 05/26/22 release 24 hr (Depakote ER) Previous Rx's Medication Instructions Recorded lorazepam 0.5 mg tablet (Ativan) 0.5 mg PO DAILY PRN #5 tabs 12/21/21 albuterol sulfate 90 mcg/actuation 2 puff inhalation Q6H PRN 05/18/22 aerosol inhaler shortness of breath or wheezing #8.5 grams prednisone 20 mg tablet See Rx Instructions .Route 05/18/22 .COMPLEX #18 tabs Allergies Allergy/AdvReac Type Severity Reaction Status Date / Time No Known Drug Allergies Allergy Unverified 05/26/22 06:45 General Stated Complaint: SOB SILVA: 2 Review of Systems All systems reviewed & are unremarkable except as noted in HPI and below Constitutional Constitutional: Denies chills, Denies fever(s) and Denies weakness Cardiovascular Cardiovascular: Denies chest pain Gastrointestinal Gastrointestinal: Denies abdominal pain, Denies nausea and Denies vomiting Neurologic Neurologic: Denies weakness PFSH All Active Problems (Updated 05/26/22 @ 06:58 by Bishop Swain MD) Altered mental state (Acute) Acute exacerbation of chronic obstructive pulmonary disease (Acute) Left rib fracture (Acute) Shortness of breath (Acute) Anxiety (Chronic) Polysubstance abuse (Chronic) Tobacco abuse (Chronic) Acute respiratory failure with hypoxia and hypercarbia (Acute) Decompensated COPD with exacerbation (chronic obstructive pulmonary disease) (Ac [place]) Medical History Cerebellar cerebrovascular accident (CVA) without late effect COPD (chronic obstructive pulmonary disease) Moderate opioid dependence on maintenance therapy Social History Smoking/Tobacco Use Status: Current every day Tobacco Type: cigarettes Smoking risk assessment performed?: Yes Alcohol Intake: current Alcohol Intake frequency: a few times a month Drug use: Occasionally Substance use type: former substance user, marijuana, heroin and amphetamines Details: Marijuana use. Do you feel safe at home: Yes Do you feel safe in your relationship?: Yes Exam Const General: no acute distress Orientation: alert HENMT Head: normal to inspection Ears: external ears normal General nose exam: external nose normal Mouth: moist mucous membranes Eyes General: appearance normal, both eyes and all related structures Neck Neck: normal visual inspection Resp Effort & Inspection: normal respiratory effort and able to speak in complete sentences Cardio Rate: regular rate Skin General skin exam: no rashes or lesions noted Neuro General: patient alert and patient oriented x3 Extrem General: normal to inspection Psych Mental Status: mental status grossly normal Course Vital Signs Vital signs: Vital Signs Temperature 36.5 C 05/26/22 06:41 Pulse 63 05/26/22 06:41 Respiratory Rate 13 05/26/22 06:41 Blood Pressure 143/76 H 05/26/22 06:41 Pulse Oximetry 95 05/26/22 06:41 Temperature 36.5 C 05/26/22 06:41 Temperature Source Skin 05/26/22 06:41 Pulse 63 05/26/22 06:41 Respiratory Rate 13 05/26/22 06:45 Respiratory Effort 05/26/22 06:45 Respiratory Depth Normal 05/26/22 06:45 Respiratory Pattern Normal 05/26/22 06:45 Blood Pressure 143/76 H 05/26/22 06:41 Blood Pressure Position Sitting 05/26/22 06:41 Pulse Oximetry 95 05/26/22 06:41 Oxygen Delivery Method Room Air 05/26/22 06:41 Oxygen Flow Rate 0 05/26/22 06:41
== END 2022-05-26 07:05 ==
PROVIDERS: Emergency Provider Emergency Medicine; PCP Physician Assistant
DX: R06.02 Shortness of breath (principal); J44.9 Chronic obstructive pulmonary disease, unspecified; F17.210 Nicotine dependence, cigarettes, uncomplicated; Z79.52 Long term (current) use of systemic steroids; Z86.73 Personal history of transient ischemic attack (TIA), and cerebral infarction without residual deficits; Z53.29 Procedure and treatment not carried out because of patient's decision for other reasons
CPT/HCPCS: 99283; 99282

== ENCOUNTER 2022-06-15 03:14 | Emergency (ER) | payer MEDICAID, SELFPAY ==
[2022-06-15] VITALS (12 sets, daily range): BP systolic 114–151; BP diastolic 72–89; PULSE 52–63; RESP 4–20; TEMP 36.7; O2SAT 88–99
--- NOTE | 2022-06-15 02:45 | RT.EKG_ITS ---
APPROVED REPORT Exam: Resting ECG Reason for Exam: short of breath Patient Location: E HR:59 bpm ECG Measurements Heart Rate 59 AXIS SD 164 P 30 QRSd 110 QRS -20 QT 455 T 57 QTc 452 Conclusion Sinus bradycardia.
--- NOTE | 2022-06-15 03:00 | DI.RAD_ITS ---
Exam(s) XR PORTABLE CHEST AP EXAM: XR PORTABLE CHEST AP CLINICAL HISTORY: shortness of breath. TECHNIQUE: 2D digital imaging was performed. COMPARISON: CR XR RIBS LT W PA LAT CHEST from 05/18/2022 FINDINGS: Single AP portable view. Heart size is upper normal. The mediastinum is not widened. There has been significant radiographic improvement in the right lung infiltrate which was evident on the 05/18/2022 study. Mild residual increased markings seen in the mid right lung zone at this leve l. Opposite-left lung is clear. There are no pleural effusions. No pneumothorax. IMPRESSION: Significant improvement compared to 05/18/2022. Small amount of residual infiltrate with nodular-typ e appearance evident the mid right lung zone. Recommend follow-up PA and lateral chest x-ray in 1 mo nth. N DATA REPOSITORY: RADIATION DOSE DELIVERED: All CT scans at this facility use at least one of these dose optimization techniques: automated exposure control; mA and/or kV adjustment per patient size (includes targeted e xams where dose is matched to clinical indication); or iterative reconstruction.
--- NOTE | 2022-06-15 03:03 | ED.GENADUL_ITS ---
Discharge Plan Disposition Patient Disposition: HOME Condition: Improving Discharge Details Clinical Impression: Acute exacerbation of chronic obstructive pulmonary disease Primary Care Provider: Nicholas Wilcox ED Provider: Gurdeep Rogers Home Meds and New Rx's Prescriptions: New prednisone 50 mg tablet 50 mg PO DAILY 5 Days Qty: 5 0RF Continued methadone 40 mg Tablet,Soluble 70 mg PO DAILY gabapentin 800 mg Tablet 800 mg PO TID propranolol 40 mg Tablet 40 mg PO DAILY buspirone 7.5 mg Tablet 7.5 mg PO DAILY lorazepam [Ativan] 0.5 mg tablet 0.5 mg PO DAILY PRNQty: 5 0RF albuterol sulfate [ProAir HFA] 90 mcg/actuation HFA aerosol inhaler 2 inh INHALATION PRN PRN Label Comments: INHALE 1-2 PUFFS USING INHALER EVERY FOUR TO SIX HOURS albuterol sulfate 90 mcg/actuation HFA aerosol inhaler 2 puff inhalation Q6H PRN (Reason: shortness of breath or wheezing) Qty: 8.5 0RF divalproex [Depakote ER] 500 mg tablet extended release 24 hr 3 tab PO DAILY Label Comments: TAKE 3 TABLETS BY MOUTH ONCE A DAY Spiriva with HandiHaler 18 mcg capsule, w/inhalation device 1 inh INHALATION DAILY Label Comments: INHALE THE CONTENTS OF 1 CAPSULE VIA INHALATION DEVICE EVERY DAY Medical Decision Making 47-year-old male presents via EMS. He is homeless and has run out of his inhaler and continues to smoke. He has had a cough with mild shortness of breath. Also notes some mild anxiety. Oxygenating normally and speaking in full sentences. Patient referred for chest x-ray with no evidence of acute infiltrate. Improved following oral steroids and DuoNeb updraft. Also given anxiolytic. We will place the patient on a small burst of prednisone. He is dispensed an albuterol inhaler for home. He is stable and improving. HPI General Mode of arrival: EMS . Date/Time Provider Initiated Documentation: 06/15/22 03:17 . Limitations to Documentation: no limitations . Information obtained by: patient and EMS . History of Present Illness 47 year old M presents to the emergency department with the chief complaint of Shortness of breath, described as moderate, and is localized to the chest. Patient reports no radiation. Patient started experiencing this hour(s) and it has been intermittent. No relieving factors improve symptom(s), No exacerbating factors reported . Patient notes cough and shortness of breath; denies chest pain. Patient did receive the following treatments prior to arrival, none Related Data Home Medications Medication Instructions Recorded Confirmed gabapentin 800 mg tablet 800 mg PO TID 12/13/20 06/15/22 methadone 40 mg soluble tablet 70 mg PO DAILY 12/13/20 06/15/22 buspirone 7.5 mg tablet 7.5 mg PO DAILY 12/07/21 06/15/22 propranolol 40 mg tablet 40 mg PO DAILY 12/07/21 06/15/22 lorazepam 0.5 mg tablet (Ativan) 0.5 mg PO DAILY PRN #5 tabs 12/21/21 06/15/22 albuterol sulfate 90 mcg/actuation 2 inh inhalation PRN PRN 04/06/22 06/15/22 aerosol inhaler (ProAir HFA) albuterol sulfate 90 mcg/actuation 2 puff inhalation Q6H PRN 05/18/22 06/15/22 aerosol inhaler shortness of breath or wheezing #8.5 grams divalproex 500 mg tablet,extended 3 tab PO DAILY 05/26/22 06/15/22 release 24 hr (Depakote ER) prednisone 50 mg tablet 50 mg PO DAILY 5 days #5 tabs 06/15/22 tiotropium bromide 18 mcg capsule 1 inh inhalation DAILY 06/15/22 06/15/22 with inhalation device (Spiriva with HandiHaler) Previous Rx's Medication Instructions Recorded lorazepam 0.5 mg tablet (Ativan) 0.5 mg PO DAILY PRN #5 tabs 12/21/21 albuterol sulfate 90 mcg/actuation 2 puff inhalation Q6H PRN 05/18/22 aerosol inhaler shortness of breath or wheezing #8.5 grams prednisone 50 mg tablet 50 mg PO DAILY 5 days #5 tabs 06/15/22 Allergies Allergy/AdvReac Type Severity Reaction Status Date / Time No Known Drug Allergies Allergy Unverified 05/26/22 06:45 General Stated Complaint: SOB SILVA: 3 Review of Systems Narrative: 6 systems reviewed and otherwise negative PFSH All Active Problems (Updated 06/15/22 @ 03:56 by Gurdeep Rogers MD) Acute exacerbation of chronic obstructive pulmonary disease (Acute) Left rib fracture (Acute) Shortness of breath (Acute) Anxiety (Chronic) Polysubstance abuse (Chronic) Tobacco abuse (Chronic) Acute respiratory failure with hypoxia and hypercarbia (Acute) Decompensated COPD with exacerbation (chronic obstructive pulmonary disease) (Acute) Medical History Cerebellar cerebrovascular accident (CVA) without late effect COPD (chronic obstructive pulmonary disease) Moderate opioid dependence on maintenance therapy Social History Smoking/Tobacco Use Status: Current every day Tobacco Type: cigarettes Smoking risk assessment performed?: Yes Alcohol Intake: current Alcohol Intake frequency: a few times a month Drug use: Occasionally Substance use type: former substance user, marijuana, heroin and amphetamines Details: Marijuana use. Do you feel safe at home: Yes Do you feel safe in your relationship?: Yes Exam Narrative Exam Narrative: GEN: awake, alert, oriented 3. Pleasant, well groomed, interactive. HEAD: Normocephalic, atraumatic ENT: Mucous membranes moist, oropharynx unremarkable, External ear exam unremarkable EYES: PERRL, EOMI NECK: Full ROM, no MARGOT, no menigismus CHEST/RESP: Nontender, bilateral end expiratory wheeze CARDIOVASCULAR: RRR, no murmur, rub lupillo. 2+ Rad pulse bilateral ABDOMEN: Soft, nontender, no mass. +Bowel sounds EXT: Full ROM, no edema, no rash Neuro: Grossly normal neurologic exam, conversant, interactive. Psych: Speech fluent, thoughts congruent, affect normal Course Vital Signs Vital signs: Vital Signs Temperature 36.7 C 06/15/22 02:53 Pulse 62 06/15/22 02:53 Respiratory Rate 18 06/15/22 02:53 Blood Pressure 151/81 H 06/15/22 02:53 Pulse Oximetry 92 06/15/22 02:53 Temperature 36.7 C 06/15/22 02:53 Pulse 62 06/15/22 02:53 Respiratory Rate 18 06/15/22 02:53 Blood Pressure 151/81 H 06/15/22 02:53 Pulse Oximetry 92 06/15/22 02:53 Pain Level 7 06/15/22 02:53
[2022-06-15] MEDS: predniSONE 20 MG TAB 60 MG PO (03:18)
[2022-06-15] MEDS: LORazepam 1 MG TAB PO (03:22)
[2022-06-15] MEDS: Albuterol/Ipratropium 3 ML UPD VIAL UPD (03:41)
[2022-06-15] MEDS: Albuterol HFA 8 GM 60 PUFF INH IH (04:19)
--- NOTE | 2022-06-15 05:00 | DI.VRAD_ITS ---
PROCEDURE INFORMATION: Exam: XR Chest Exam date and time: 06/15/2022 3:13 AM Age: 47 years old Clinical indication: Shortness of breath TECHNIQUE: Imaging protocol: Radiologic exam of the chest. Views: 1 view. COMPARISON: CR XR RIBS LT W PA LAT CHEST 05/18/2022 10:01 AM FINDINGS: Lungs: There is minimal residual subsegmental atelectasis versus scarring in the right mid lung where a larger parenchymal opacity was present on the 05/18/2022 radiographs. There is no new consolidation or infiltrate. There is no pulmonary edema. The pulmonary vasculature is normal in caliber. Pleural spaces: Unremarkable. No pleural effusion or pneumothorax. Heart/Mediastinum: Heart size is normal. Cardiomediastinal contours are stable and satisfactory. Bones/joints: Degenerative changes. No acute osseous abnormality. IMPRESSION: No acute cardiopulmonary abnormality. Dictated and Authenticated by: Sindi Alexis MD. Ordering:OPHELIA Mackenzie MD
== END 2022-06-15 04:28 | disposition home or self-care (01) ==
LOC: ER 04:30
PROVIDERS: Emergency Provider Emergency Medicine; PCP Physician Assistant
DX: J44.1 Chronic obstructive pulmonary disease with (acute) exacerbation (principal); F17.210 Nicotine dependence, cigarettes, uncomplicated; Z86.73 Personal history of transient ischemic attack (TIA), and cerebral infarction without residual deficits
CPT/HCPCS: 93005; 99284; 71045; 93010; J7512; J7620